=== PATIENT | male | born 1955 | race Caucasian/White ===

== ENCOUNTER 2020-07-19 08:20 | Outpatient (REF) | payer MEDICARE, OTHER, SELFPAY ==
[2020-07-19 11:23] LABS: MANUAL DIFF FLAG NO
[2020-07-19 11:34] LABS: Basophils Percent Auto 0.4 % (0-2); Eosinophils Absolute Auto 0.5 X10*3/uL (0.0-0.4); Eosinophils Percent Auto 6.6 % (0-4); Hematocrit 45.5 % (42-52); Hemoglobin 14.8 g/dl (14.0-18.0); Imm Gran Abs Auto 0.05 X10*3/uL (0.00-0.03); Imm Gran Pct Auto 0.7 % (0.0-0.4); Lymphocytes Absolute Auto 1.3 X10*3/uL (1.2-4.9); Lymphocytes Percent Auto 19.3 % (20-40); Mean Corpuscular HGB Conc 32.5 g/dl (31.0-36.0); Mean Corpuscular Hemoglobin 29.9 pg (27.0-33.0); Mean Corpuscular Volume 91.9 fL (80-98); Mean Platelet Volume 9.3 fL (9.4-12.4); Monocytes Absolute Auto 0.6 X10*3/uL (0.1-1.2); Monocytes Percent Auto 9.4 % (2-11); Neutrophils Absolute Auto 4.3 X10*3/uL (2.0-8.3); Neutrophils Percent Auto 63.6 % (45-73); Platelet Count 352 X10*3/uL (160-400); Red Blood Count 4.95 X10*6/uL (4.60-5.80); Red Cell Distribution Width 12.6 % (11.0-16.0); White Blood Count 6.8 X10*3/uL (4.8-10.8)
[2020-07-19 12:10] LABS: Alanine Aminotransferase 20 U/L (0-40); Albumin Level 4.4 g/dL (3.5-5.0); Alkaline Phosphatase 88 U/L (39-117); Anion Gap 12 (12-20); Aspartate Amino Transferase 15 U/L (5-37); Bilirubin Total 0.4 mg/dL (0.0-1.0); Blood Urea Nitrogen 11 mg/dL (9-16); Calcium 9.9 mg/dL (8.4-10.2); Carbon Dioxide 27 mmol/L (22-29); Chloride 104 mmol/L (96-108); Cholesterol 203 mg/dL; Estimated Glomerular Filt Rate > 60; Glucose Random 107 mg/dL (60-115); HDL Cholesterol 44 mg/dL; LDL Cholesterol Calculated 106 mg/dl; Potassium 4.9 mmol/L (3.3-5.1); Sodium 138 mmol/L (135-145); Total Protein 7.1 g/dL (6.5-8.0); Triglycerides 269 mg/dL
[2020-07-19 12:11] LABS: Free T4 (Free Thyroxine) 0.97 ng/dL (0.71-1.85); Prostate Specific Antigen Scr 2.18 ng/mL (<0.05-4.0); Thyroid Stimulating Hormone 2.97 uIU/mL (0.32-4.0)
[2020-07-20 20:24] LABS: Folate > 20.0 ng/mL (> or = 4.0); Vitamin B12 341 pg/mL (200-900)
== END 2020-07-19 08:21 | disposition home or self-care (01) ==
LOC: HO.HMGCLDS 08:20
PROVIDERS: PCP Internal Medicine; Visit Provider Internal Medicine
DX: I10 Essential (primary) hypertension (principal); E78.00 Pure hypercholesterolemia, unspecified; N40.1 Benign prostatic hyperplasia with lower urinary tract symptoms; R35.0 Frequency of micturition; Z12.5 Encounter for screening for malignant neoplasm of prostate
CPT/HCPCS: 36415; 80053; 80061; 82607; 82746; 84153; 84439; 84443; 85025

== ENCOUNTER 2020-11-09 08:40 | Outpatient (REF) | payer MEDICARE, OTHER, SELFPAY ==
--- NOTE | ~2020-11-09 | XR_ITS ---
EXAMINATION: XR RIBS, LEFT CLINICAL INFORMATION: R07.81 - Pleurodynia COMPARISON: Report from chest radiograph exam 08/29/2005 (images purged). TECHNIQUE: Frontal view of the chest and 3 views of the left ribs are obtained for a total of 4 views. FINDINGS: The lungs are clear. There is no pneumothorax, pleural reaction, airspace consolidation, or effusion. The costophrenic sulci are well-defined. The heart is normal in size. The hilar and mediastinal contours are unremarkable. There is no visible rib fracture or rib destructive process. Some mild degenerative changes are present thoracic spine with bridging osteophytes. There is fine calcific tendinosis adjacent to greater tuberosity left shoulder and in region of coracoclavicular ligament just above the coracoid process. XR/XR ribs LT min 3V w CXR1V IMPRESSION: 1. No visible rib fracture or rib destructive process. 2. Lungs clear. No pneumothorax or pleural reaction. 3. Degenerative changes thoracic spine. Mild calcific tendinosis left shoulder.
== END 2020-11-09 08:41 | disposition home or self-care (01) ==
LOC: HO.HMGCX 08:40
PROVIDERS: PCP Internal Medicine; Visit Provider Physician Assistant
DX: R07.81 Pleurodynia (principal)
CPT/HCPCS: 71101

== ENCOUNTER 2020-11-21 10:30 | Outpatient (REF) | payer MEDICARE, OTHER, SELFPAY ==
--- NOTE | ~2020-11-21 | US_ITS ---
EXAMINATION: US ABDOMEN COMPLETE CLINICAL INFORMATION: Left upper quadrant pain. COMPARISON: None TECHNIQUE: Real-time imaging of the abdominal viscera. FINDINGS: PANCREAS: Normal. ABDOMINAL AORTA: The proximal, mid, and distal segments are normal in caliber. INFERIOR VENA CAVA: Visualized portions are normal. LIVER: The liver is normal in size. The liver contour is normal. There is increased liver echogenicity. No focal hepatic lesion. There is no intrahepatic biliary duct dilatation seen. GALLBLADDER: Normal. The gallbladder is physiologically distended without evidence of stones, sludge, polyps, wall thickening or pericholecystic fluid. COMMON BILE DUCT: Normal in caliber measuring 0.29 cm in diameter. RIGHT KIDNEY: Normal. No hydronephrosis. No renal calculi or focal parenchymal lesions. The kidney measures 12.7 cm in maximum dimension. LEFT KIDNEY: Normal. No hydronephrosis. No renal calculi or focal parenchymal lesions. The kidney measures 12.5 cm in maximum dimension. SPLEEN: Normal. The spleen measures 9.60 cm in maximum dimension. FREE FLUID: None. US/US abdomen complete IMPRESSION: Hepatic steatosis without focal lesion. The rest of the abdominal ultrasound is unremarkable.
== END 2020-11-21 10:31 | disposition home or self-care (01) ==
LOC: HO.HMGCX 10:30
PROVIDERS: PCP Internal Medicine; Visit Provider Physician Assistant
DX: R10.12 Left upper quadrant pain (principal)
CPT/HCPCS: 76700

== ENCOUNTER → 2020-11-30 11:31 | Outpatient (BNVA) | payer MEDICARE, OTHER, SELFPAY | PROVIDERS: PCP Internal Medicine; Visit Provider Urology | DX: Z13.89 Encounter for screening for other disorder (principal) | CPT/HCPCS: 99212 ==

== ENCOUNTER 2021-01-23 07:26 | Outpatient (REF) | payer MEDICARE, OTHER, SELFPAY ==
[2021-01-23 11:25] LABS: MANUAL DIFF FLAG NO
[2021-01-23 11:41] LABS: Basophils Percent Auto 0.5 % (0-2); Eosinophils Absolute Auto 0.6 X10*3/uL (0.0-0.4); Eosinophils Percent Auto 8.6 % (0-4); Hematocrit 45.2 % (42-52); Hemoglobin 14.5 g/dl (14.0-18.0); Imm Gran Abs Auto 0.02 X10*3/uL (0.00-0.03); Imm Gran Pct Auto 0.3 % (0.0-0.4); Lymphocytes Absolute Auto 1.5 X10*3/uL (1.2-4.9); Lymphocytes Percent Auto 22.3 % (20-40); Mean Corpuscular HGB Conc 32.1 g/dl (31.0-36.0); Mean Corpuscular Hemoglobin 29.5 pg (27.0-33.0); Mean Corpuscular Volume 91.9 fL (80-98); Mean Platelet Volume 9.5 fL (9.4-12.4); Monocytes Absolute Auto 0.7 X10*3/uL (0.1-1.2); Monocytes Percent Auto 9.8 % (2-11); Neutrophils Absolute Auto 3.9 X10*3/uL (2.0-8.3); Neutrophils Percent Auto 58.5 % (45-73); Platelet Count 340 X10*3/uL (160-400); Red Blood Count 4.92 X10*6/uL (4.60-5.80); White Blood Count 6.7 X10*3/uL (4.8-10.8)
[2021-01-23 12:24] LABS: Alanine Aminotransferase 17 U/L (0-40); Albumin Level 4.3 g/dL (3.5-5.0); Alkaline Phosphatase 87 U/L (39-117); Anion Gap 12 (12-20); Aspartate Amino Transferase 14 U/L (5-37); Bilirubin Total 0.7 mg/dL (0.0-1.0); Blood Urea Nitrogen 10 mg/dL (9-16); Calcium 9.6 mg/dL (8.4-10.2); Carbon Dioxide 28 mmol/L (22-29); Chloride 104 mmol/L (96-108); Cholesterol 190 mg/dL; Estimated Glomerular Filt Rate > 60; Glucose Random 92 mg/dL (60-115); HDL Cholesterol 42 mg/dL; LDL Cholesterol Calculated 104 mg/dl; Potassium 5.1 mmol/L (3.3-5.1); Sodium 139 mmol/L (135-145); Total Protein 6.9 g/dL (6.5-8.0); Triglycerides 224 mg/dL
[2021-01-23 14:26] LABS: Estimated Average Glucose 105 mg/dL; Hemoglobin A1c % 5.3 %
== END 2021-01-23 07:27 | disposition home or self-care (01) ==
LOC: HO.HMGCLDS 07:26
PROVIDERS: PCP Internal Medicine; Visit Provider Internal Medicine
DX: E78.00 Pure hypercholesterolemia, unspecified (principal); R73.01 Impaired fasting glucose
CPT/HCPCS: 36415; 80053; 80061; 83036; 85025

== ENCOUNTER 2021-11-23 09:07 | Outpatient (REF) | payer MEDICARE, OTHER, SELFPAY ==
[2021-11-23 12:03] LABS: Prostate Specific Antigen 1.68 ng/mL (<0.05-4.0)
== END 2021-11-23 09:08 | disposition home or self-care (01) ==
LOC: HO.HMGCLDS 09:07
PROVIDERS: Visit Provider Urology
DX: Z12.5 Encounter for screening for malignant neoplasm of prostate (principal); N40.1 Benign prostatic hyperplasia with lower urinary tract symptoms; N13.8 Other obstructive and reflux uropathy
CPT/HCPCS: 36415; 84153

== ENCOUNTER → 2021-11-30 11:18 | Outpatient (BNVA) | payer MEDICARE, OTHER, SELFPAY | PROVIDERS: PCP Internal Medicine; Visit Provider Urology | DX: N40.1 Benign prostatic hyperplasia with lower urinary tract symptoms (principal); R35.0 Frequency of micturition; R97.20 Elevated prostate specific antigen [PSA] | CPT/HCPCS: 51798; 99212 ==

== ENCOUNTER 2022-05-28 10:10 | Outpatient (REF) | payer MEDICARE, OTHER, SELFPAY ==
[2022-05-28 12:51] LABS: PSA,Total (Free>4and<10) 3.82 ng/mL (0.00-4.00)
== END 2022-05-28 10:11 | disposition home or self-care (01) ==
LOC: HO.HMGCLDS 10:10
PROVIDERS: PCP Internal Medicine; Visit Provider Urology
DX: Z12.5 Encounter for screening for malignant neoplasm of prostate (principal); N13.8 Other obstructive and reflux uropathy; N40.1 Benign prostatic hyperplasia with lower urinary tract symptoms; R35.0 Frequency of micturition
CPT/HCPCS: 36415; 84153

== ENCOUNTER → 2022-06-04 08:52 | Outpatient (BNVA) | payer OTHER, MEDICARE, SELFPAY | PROVIDERS: PCP Internal Medicine; Visit Provider Urology | DX: Z13.89 Encounter for screening for other disorder (principal) ==

== ENCOUNTER 2022-06-18 07:35 | Day surgery (SDC) | payer MEDICARE, OTHER, SELFPAY ==
--- NOTE | 2022-06-17 12:38 | HO.ANESPROP2 ---
Documented by User: Melissa Gonzales NP 06/17/22 12:38 HPI - Anesthesia Eval Consult details Narrative: 67yo M for Colonoscopy PMFSH Active Problems Active Problems: All Active Problems (Updated 06/04/22 @ 09:32 by Arnulfo Andrade MD) Elevated PSA (Acute) Sebaceous cyst (Acute) Tubular adenoma of colon (Acute) Overweight (BMI 25.0-29.9) (Acute) Annual physical exam (Acute) Nasal congestion (Acute) Impaired fasting blood sugar (Acute) Rib pain on left side (Acute) LUQ abdominal pain (Acute) Left flank pain (Acute) Screening for AAA (aortic abdominal aneurysm) (Acute) Adult general medical exam (Acute) Hypercholesterolemia (Acute) BPH (benign prostatic hyperplasia) (Acute) Hypertension (Acute) Past Medical History Medical History (Updated 06/04/22 @ 09:32 by Arnulfo Andrade MD) BPH (benign prostatic hyperplasia) Carpal tunnel syndrome Distal radius fracture, right Erectile dysfunction Hypercholesterolemia Hypertension Psoriasis Family History Family History Mother Dementia Mental health disorder Father No problems noted. Surgical History Surgical History (Updated 06/18/22 @ 07:43 by Tiffanie Borden) H/O colonoscopy H/O hand surgery History of prostate biopsy History of umbilical hernia repair Previous back surgery Social History Social History Housing: House Alcohol intake: current Alcohol intake frequency: a few times a week Alcohol type: beer and wine Patient Tobacco Use Status: Former Tobacco user Quit Date: 2016 Tobacco use type: Cigar Years Smoked: stopped 2016 Smoked in Last 30 Days: No e-Cigarette/Vaping Use: Never Used Second Hand Smoke Exposure: No Use of substances other than those prescribed or required for medical reasons: No Are you DNR?: No Advance Directives: No Advance Directives Information Provided: Yes Current occupational status: retired Cognitive needs: No Hearing needs: No Vision needs: No Meds Allergies Allergy/AdvReac Type Severity Reaction Status Date / Time amlodipine AdvReac Intermediate trachycardi Verified 06/18/22 07:43 c Exam Exam Date and Time: June 17, 2022 1238 Assessment and Plan Assessment Anesthesia Assessment: Chart Reviewed Documented by User: Jamia Allen MD 06/18/22 08:28 PMFSH Past Medical History Medical History (Updated 06/04/22 @ 09:32 by Arnulfo Andrade MD) BPH (benign prostatic hyperplasia) Carpal tunnel syndrome Distal radius fracture, right Erectile dysfunction Hypercholesterolemia Hypertension Psoriasis Family History Family History Mother Dementia Mental health disorder Father No problems noted. Family history of problems with anesthesia: No Surgical History Surgical History (Updated 06/18/22 @ 07:43 by Tiffanie Borden) H/O colonoscopy H/O hand surgery History of prostate biopsy History of umbilical hernia repair Previous back surgery History of Problems with Anesthesia: No Social History Social History Housing: House Alcohol intake: current Alcohol intake frequency: a few times a week Alcohol type: beer and wine Patient Tobacco Use Status: Former Tobacco user Quit Date: 2016 Tobacco use type: Cigar Years Smoked: stopped 2016 Smoked in Last 30 Days: No e-Cigarette/Vaping Use: Never Used Second Hand Smoke Exposure: No Use of substances other than those prescribed or required for medical reasons: No Are you DNR?: No Advance Directives: No Advance Directives Information Provided: Yes Current occupational status: retired Cognitive needs: No Hearing needs: No Vision needs: No Meds Allergies Allergy/AdvReac Type Severity Reaction Status Date / Time amlodipine AdvReac Intermediate trachycardi Verified 06/18/22 07:43 c Exam Airway Mallampati Class: II TM Dist: >3cm Neck ROM: Full Heart: rrr Lungs: cta Assessment and Plan Assessment Anesthesia Assessment: Anesthesia Plan Discussed Final Anesthetic Review Family History of Problems with Anesthesia: No History of Problems with Anesthesia: No NPO: Yes ASA Class: III Final Preanesthetic Review: No Changes in Pt Med Stat, Meds/Allgs Chart Reviewed, Consent Obtained/Reviewed and Anes Risks/Benef Reviewed Patient Risk: Low Procedure Risk: Low Anesthetic Plan Anesthetic Plan: MAC: and Agree w/ Assess. and Plan Disposition: Standard PACU
[2022-06-18 07:46] VITALS: BMI 28.3
[2022-06-18 07:52] VITALS: BP 159/94; PULSE 77; RESP 16; TEMP 36.8; O2SAT 98
[2022-06-18] MEDS: Lactated Ringers 1,000 ML 100 ML IVCONT (08:22)
--- NOTE | 2022-06-18 08:46 | MHC.SHP ---
Pre-Procedural Eval Section A Date of Service: 06/18/22 Section B Chief Complaint: screening,Personal history of colonic polyps Details of Present Illness: see H&P no changes Relevant Family History (Specify if Yes): No Relevant Social History: None Present Medications: see Short Stay Collaborative assessment Medical History: No relevant PMH History of Previous Operations: No relevant previous surgery Allergies: Allergies Allergy/AdvReac Type Severity Reaction Status Date / Time amlodipine AdvReac Intermediate trachycardi Verified 06/18/22 07:43 c Review of Systems Sugical H&P ROS: Negative: Constitution, Cardiovascular, Respiratory, Neurological, Psychiatric, Hem-Onc, Allergic/Immunologic, Gastrointestinal, Genitourinary, Musculoskeletal, Integumentary, Endocrine and Eyes/Ears/Nose/Throat Exam Surgical H&P Exam: Normal: HEENT, Normal: Heart, Normal: Lungs, Normal: Extremities, Normal: Abdomen, Normal: Skin and Normal: Neurological Plan Diagnosis/Plan: Unchanged I have reviewed the history and physical and performed a pertinent physical examination on my patient. No changes have occurred unless specified. Time Spent With Patient Time: Total time managing care of this patient today ____ minutes.
--- NOTE | 2022-06-18 09:17 | PM.OP ---
Brief Operative Note Date of Service: 06/18/22 Pre-op diagnosis: screening Post-op diagnosis: same Procedure: colonoscopy Surgeon: Niko Gonsalez Anesthesia: MAC Was an Senior Treasury Analyst used for this Procedure?: No Estimated blood loss (mL): 2 Pathology: other Condition: stable Disposition: PACU
[2022-06-18 09:24] VITALS: BP 155/85; PULSE 95; RESP 17; TEMP 36.8; O2SAT 100
[2022-06-18 09:39] VITALS: BP 155/85; PULSE 76; RESP 16; TEMP 36.2; O2SAT 98
--- NOTE | 2022-06-18 11:14 | OP_ITS ---
SURGEON: Niko Gonsalez MD INDICATIONS: Colon cancer screening and prior history of adenomas colon polyps. PREOPERATIVE DIAGNOSIS: POSTOPERATIVE DIAGNOSIS: PROCEDURE PERFORMED: Colonoscopy to the terminal ileum with biopsy. ESTIMATED BLOOD LOSS: COMPLICATIONS: ANESTHESIA: Monitored anesthesia care. ASSISTANTS: SPECIMENS: DESCRIPTION OF PROCEDURE: The history and physical was performed. The risks and benefits of the procedure were explained to the patient. The procedure was performed on 06/18/2022. A digital rectal exam was performed. After informed consent was obtained, and was found to be normal. The Olympus pediatric video colonoscope was introduced into the rectum and advanced to the cecum without difficulty. The cecum was identified by transillumination, palpation, and identification of ileocecal valve. Examination was performed. The scope was removed. He tolerated the procedure well, and returned to recovery area in stable condition. FINDINGS: The terminal ileum was examined and appeared normal. The visualized colonic mucosa was normal. The quality of the prep was good. A single polyp measuring less than 5 mm was identified at 35 cm from anal verge. This was removed with biopsy forceps. No other polyps were identified. Retroflexed examination showed some hypertrophic anal papillae. IMPRESSION: Colon polyp. RECOMMENDATION: Follow up the biopsy results. MD JEAN CLAUDE Jewell/ANDRES / [id number]
== END 2022-06-18 10:03 | disposition home or self-care (01) ==
PROVIDERS: PCP Internal Medicine; Visit Provider Internal Medicine Gastroenterology
PROC: 0DJD8ZZ Inspection of Lower Intestinal Tract, Via Natural or Artificial Opening Endoscopic (ICD-10-PCS; CPT 45378; principal; 2022-06-18 08:50)
DX: Z12.11 Encounter for screening for malignant neoplasm of colon (principal); Z86.010 Personal history of colon polyps; K63.5 Polyp of colon; K62.89 Other specified diseases of anus and rectum; I10 Essential (primary) hypertension; E78.5 Hyperlipidemia, unspecified; R97.20 Elevated prostate specific antigen [PSA]; L40.9 Psoriasis, unspecified; Z79.899 Other long term (current) drug therapy; Z88.8 Allergy status to other drugs, medicaments and biological substances; Z87.891 Personal history of nicotine dependence
CPT/HCPCS: 45380; 88305

== ENCOUNTER 2023-01-06 09:48 | Outpatient (REF) | payer MEDICARE, OTHER, SELFPAY ==
[2023-01-06 13:06] LABS: PSA,Total (Free>4and<10) 2.25 ng/mL (0.00-4.00)
== END 2023-01-06 09:49 | disposition home or self-care (01) ==
LOC: HO.HMGCLDS 09:48
PROVIDERS: PCP Internal Medicine; Visit Provider Urology
DX: Z12.5 Encounter for screening for malignant neoplasm of prostate (principal); N40.1 Benign prostatic hyperplasia with lower urinary tract symptoms; R35.0 Frequency of micturition
CPT/HCPCS: 36415; 84153

== ENCOUNTER 2023-01-24 13:53 | Outpatient (AMB) | payer MEDICARE, OTHER, SELFPAY ==
--- NOTE | 2023-01-24 13:54 | MHC.OFFVIS ---
Intake Intake Visit Reasons: 6 month psa(set) Intake Note: Patient is present for Telephone Urology Med: Finasteride Antibiotic Allergy: None Blood Thinner: None [facility] Allergies amlodipine Adverse Reaction (Intermediate, Verified 01/24/23 13:54) trachycardic Medication List - Last Reconciled 01/24/23 by Arnulfo Andrade MD atorvastatin 40 mg PO DAILY finasteride 5 mg PO DAILY 90 days lisinopril 40 mg PO DAILY HPI HPI Comments History of Present Illness Details Mich MAHER is a very pleasant male. He is a patient of Dr Light. He is seen for the following urologic conditions. - elevated PSA - lower urinary tract symptoms Telemedicine Evaluation 15 min Consultation Doximity Jose Video attempted Finasteride resulted in fall of PSA appropriately Taking medication Friday, Friday, Friday Improvement in urination Six month follow-up to ensure stability Elevated PSA/Abnormal THEO: Nocturia 1-2x - much better Happy with stream PSA stable. He presents for further evaluation of elevated PSA. Current management is medication with 5AR. Laboratory investigations include a total PSA evaluation February 2011 3.26 Sep 2016 5.26 October 2016 5.4, 06/12 6.4 11%, 11/10 3.24, 12/11 3.7, 12/12 1.5, 07/16 2.2, 12/14 1.7, 06/17 3.8, 01/15 2.3 Imaging investigations include a transrectal ultrasound Yes Date 05/2017 PIN 06/06 Prostate Volume 60 Individualized Prostate Cancer Risk Calculator 5-10% high risk, Discussed use of 5AR to help differentiate prostate cancer from benign disease. He would like to try this and understands the small risk associated with a delay in diagnosis. Symptoms include 06/12 incomplete emptying, weak stream, nocturia, x 1, and are stable. Overall symptoms are mild. Therapeutic plan will be continued surveillance, 5AR. [facility] Medical History BPH (benign prostatic hyperplasia) Carpal tunnel syndrome Distal radius fracture, right Erectile dysfunction Hypercholesterolemia Hypertension Psoriasis Surgical History H/O colonoscopy H/O hand surgery History of prostate biopsy History of umbilical hernia repair Previous back surgery Family History Mother Dementia Mental health disorder Father No problems noted. Social History Housing: House Alcohol intake: current Alcohol intake frequency: a few times a week Alcohol type: beer and wine Patient Tobacco Use Status: Former Tobacco user Quit Date: 2016 Tobacco use type: Cigar Years Smoked: stopped 2015 e-Cigarette/Vaping Use: Never Used Second Hand Smoke Exposure: No Current occupational status: retired Cognitive needs: No Hearing needs: No Vision needs: No Review of Systems Const All systems reviewed & are unremarkable except as noted in HPI and below Reports no additional complaints Resp Reports no additional complaints GI Reports no additional complaints Reports as per HPI Musc Reports no additional complaints Physical Exam Telemedicine evaluation Appropriate responses Regular breathing rate and rhythm HEENT Head: Yes normal to inspection Ears: hearing grossly normal bilaterally Eyes General: appearance normal, both eyes and all related structures Neck Neck: Yes normal visual inspection Chest Chest palpation & inspection: normal inspection of the chest Resp Effort & Inspection: normal respiratory effort and able to speak in complete sentences Assessment & Plan Assessment & Plan (1) Elevated PSA: Code(s): R97.20 - Elevated prostate specific antigen [PSA] (2) BPH (benign prostatic hyperplasia): Code(s): N40.0 - Benign prostatic hyperplasia without lower urinary tract symptoms Qualifiers: Lower urinary tract symptom presence: symptoms present Lower urinary tract symptom detail: urinary frequency Qualified Code(s): N40.1 - Benign prostatic hyperplasia with lower urinary tract symptoms; R35.0 - Frequency of micturition Plan Six month follow-up PSA Orders: Orders Prostate Specific Antigen 6 Months R97.20 - Elevated prostate specific antigen [PSA] Patient Instructions: Imaging studies, laboratory and physical exam results were discussed and reviewed in detail. No major barriers to patient understanding were identified. An opportunity to ask questions regarding the treatment plan was provided. All questions were answered. The patient expressed understanding and agreement with the above treatment plan. The patient is aware they should contact our office by phone for worsening of their current condition or the appearance of new urologic symptoms. Compliance is encouraged with any medications and followup testing that is ordered. It is a privilege to participate in the urologic care of your patient. If you have any questions or concerns regarding treatment for the above conditions, or other urologic issues, please do not hesitate to contact me. The office telephone contact is [phone]. This note is constructed using voice recognition software. While every effort has been made to ensure accuracy balance bridge assembler errors may have been included. Yours sincerely, Dr Arnulfo Andrade MD, [facility] - Urology Providers of Expert, Compassionate Care for the Genitourinary System Telehealth Telehealth Location of provider rendering services: practice address Location of patient: address on file Patient Identification confirmed using: Name, : Yes Telehealth method: voice only Patient verbally consented to treatment: Yes Patient verbally consented to billing insurance company: Yes Patient informed of any privacy concerns related to visit: Yes Coding Level of Care Code Est Pt Level 3 (19867) Diagnoses Elevated PSA R97.20 BPH (benign prostatic hyperplasia) N40.1; R35.0 Lower urinary tract symptom presence: symptoms present Lower urinary tract symptom detail: urinary frequency
== END 2023-01-24 14:20 | disposition home or self-care (01) ==
LOC: HO.HUSH 13:53
PROVIDERS: PCP Internal Medicine; Visit Provider Urology
DX: R97.20 Elevated prostate specific antigen [PSA] (principal); N40.1 Benign prostatic hyperplasia with lower urinary tract symptoms; R35.0 Frequency of micturition
CPT/HCPCS: 99213

== ENCOUNTER → 2023-01-24 13:53 | Outpatient (BNVA) | payer MEDICARE, OTHER, SELFPAY | PROVIDERS: PCP Internal Medicine; Visit Provider Urology | DX: N40.1 Benign prostatic hyperplasia with lower urinary tract symptoms (principal); R35.0 Frequency of micturition; R97.20 Elevated prostate specific antigen [PSA] | CPT/HCPCS: 99212 ==

== ENCOUNTER 2023-03-04 07:28 | Outpatient (REF) | payer MEDICARE, OTHER, SELFPAY ==
[2023-03-04 12:42] LABS: Alanine Aminotransferase 20 U/L (0-40); Albumin Level 4.3 g/dL (3.5-5.0); Alkaline Phosphatase 86 U/L (39-117); Anion Gap 15 (12-20); Aspartate Amino Transferase 18 U/L (5-37); Bilirubin Total 0.4 mg/dL (0.0-1.0); Blood Urea Nitrogen 12 mg/dL (9-16); Calcium 9.8 mg/dL (8.4-10.2); Carbon Dioxide 24 mmol/L (22-29); Chloride 107 mmol/L (96-108); Cholesterol 199 mg/dL (<200); Estimated Glomerular Filt Rate > 60; Glucose Random 106 mg/dL (60-115); HDL Cholesterol 40 mg/dL (>40); LDL Cholesterol Calculated 119 mg/dL (<100); Potassium 4.5 mmol/L (3.3-5.1); Sodium 141 mmol/L (135-145); Total Protein 7.2 g/dL (6.5-8.0); Triglycerides 204 mg/dL (<150)
[2023-03-04 12:59] LABS: Free T4 (Free Thyroxine) 0.91 ng/dL (0.71-1.85)
== END 2023-03-04 07:29 | disposition home or self-care (01) ==
LOC: HO.HMGCLDS 07:28
PROVIDERS: PCP Internal Medicine; Visit Provider Internal Medicine
DX: E78.00 Pure hypercholesterolemia, unspecified (principal); I10 Essential (primary) hypertension; R73.01 Impaired fasting glucose
CPT/HCPCS: 36415; 80053; 80061; 82607; 82746; 83036; 84439; 84443; 85025

== ENCOUNTER 2023-03-10 11:09 | Outpatient (AMB) | payer MEDICARE, OTHER, SELFPAY ==
[2023-03-10 11:29] VITALS: BP 148/86; PULSE 89; O2SAT 100; BMI 29.1
--- NOTE | 2023-03-10 11:29 | MHC.PC.OV ---
Vital Signs 03/10/23 11:29 Height 5 ft 9 in Weight 197 lb 0.6 oz BMI 29.1 BP 148/86 H Blood Pressure Location Lt brachial Position Sitting Pulse 89 Pulse Source Pulse Oximeter Temp Source Skin Pulse Oximetry (%) 100 Oxygen Delivery Method Room Air Intake Visit Reasons: Annual physical reschedule Cuff Cutter Required: No Allergies amlodipine Adverse Reaction (Intermediate, Verified 03/10/23 11:30) trachycardic Medication List - Last Reconciled 03/10/23 by Adán Light MD atorvastatin 40 mg PO DAILY finasteride 5 mg PO DAILY 90 days lisinopril 40 mg PO DAILY multivitamin 1 tab PO DAILY Tobacco use date assessed: 03/10/23 Fall risk assessment: No Falls in past year Last assessed Fall Risk: 03/10/23 Dental Screening Dental Screen Date: 03/10/23 Did you have a dental visit in the last 12 months?: No Did you have a dental problem in the last 6 months where you did not have access to dental care?: No Was dental information given to patient?: Patient has dentist HPI Annual physical reschedule HPI Details 68-year-old overweight male with a history of impaired glucose tolerance hypercholesterolemia BPH hypertension last seen in February 2022. Patient is here for physical exam. Colonoscopy last done in May 2022. Review of the notes follows up with urology for the elevated PSA and lower urinary tract symptoms finasteride taken Friday under surveillance of PSA. BP at home is good [facility] Medical History (Updated 03/10/23 @ 12:05 by Adán Light MD) Carpal tunnel syndrome Distal radius fracture, right Psoriasis Erectile dysfunction Hypercholesterolemia BPH (benign prostatic hyperplasia) Hypertension Surgical History H/O colonoscopy Previous back surgery History of umbilical hernia repair H/O hand surgery History of prostate biopsy Family History Mother Dementia Mental health disorder Father No problems noted. Social History (Updated 03/10/23 @ 12:03 by Adán Light MD) Housing: House Alcohol intake: current Alcohol intake frequency: a few times a week Alcohol type: beer and wine Patient Tobacco Use Status: Former Tobacco user Quit Date: 2016 Tobacco use type: Cigar Years Smoked: stopped 2015 e-Cigarette/Vaping Use: Never Used Second Hand Smoke Exposure: No Current occupational status: retired Cognitive needs: No Hearing needs: No Vision needs: No Questionnaire PHQ-9 Over the last 2 weeks, how often have you been bothered by any of the following problems? 1. Little interest or pleasure in doing things: not at all 2. Feeling down, depressed, or hopeless: not at all 3. Trouble falling or staying asleep, or sleeping too much: not at all 4. Feeling tired or having little energy: not at all 5. Poor appetite or overeating: not at all 6. Feeling bad about yourself - or that you are a failure or have let yourself or your family down: not at all 7. Trouble concentrating on things, such as reading the newspaper or watching television: not at all 8. Moving or speaking so slowly that other people could have noticed. Or the opposite - being so fidgety or restless that you have been moving around a lot more than usual: not at all 9. Thoughts that you would be better off or of hurting yourself in some way: not at all Total score: 0 Depression Screening Interpretation: Negative Depression Screening Done: Yes Source: Developed by Drs. Evelio Vivas, Anuradha Webb, Kirk Euceda and colleagues, with an educational austen from [employer]. Thrive Questionnaire Date Thrive assessed: 03/08/22 AUDIT C Alcohol Use Questionnaire (AUDIT-C) 1. How often do you have a drink containing alcohol?: 2-3 times a week 2. How many drinks containing alcohol do you have on a typical day when you are drinking?: 1 or 2 3. How often do you have six or more drinks on one occasion?: Less than monthly Total Score: 4 SULMA-7 AMB Questionnaire SULMA-7 Date SULMA - 7 assessed: 03/10/23 Feeling nervous, anxious, or on edge: 0 = Not at all Not being able to stop or control worryin = Not at all Worrying too much about different things: 0 = Not at all Trouble relaxin = Not at all Being so restless that it is hard to sit still: 0 = Not at all Becoming easily annoyed or irritable: 0 = Not at all Feeling afraid as if something awful might happen: 0 = Not at all Total SULMA-7 score (0-4 normal; 5-9 mild; 10-14 moderate; 15-21 severe): 0 Source: Developed by Drs. Evelio Vivas, Anuradha Webb, Kirk Euceda and colleagues, with an educational austen from [employer]. Review of Systems Const Denies poor appetite and Denies weakness Eyes Denies no additional complaints ENT Reports Normal hearing present, Denies dizziness, Denies nasal congestion, Denies tinnitus and Denies sore throat Card Denies chest pain, Denies syncope, Denies rapid heart rate and Denies dyspnea Resp Denies cough and Denies dyspnea GI Denies change in stool character, Reports constipation, Denies diarrhea, Denies nausea and Denies vomiting Denies dysuria and Denies urinary frequency Neuro Reports Normal hearing present, Denies confusion, Denies dizziness, Denies syncope and Denies weakness Psych Denies confusion Physical exam (Primary Care) Vital Signs: Last Vital Signs Pulse 89 03/10/23 11:29 BP 148/86 H 03/10/23 11:29 Pulse Ox 100 03/10/23 11:29 Oxygen Delivery Method Room Air 03/10/23 11:29 BMI result Body Mass Index 29.1 Tobacco/Smoking Status: Tobacco use Status Tobacco use date assessed 03/10/23 03/10/23 11:30 Patient Tobacco Use Status Former Tobacco user 03/10/23 11:30 Tobacco use type Cigar 03/10/23 11:30 e-Cigarette/Vaping Use Never Used 03/10/23 11:30 PHQ-9: PHQ-9 Score PHQ-9: Total score 0 03/10/23 11:30 Depression Screening Interpretation: Negative Thrive Assessment: Date of Thrive Assessment Date Thrive assessed 03/08/22 03/10/23 11:30 Const General: No confusion Orientation/consciousness: No confusion HENMT Head: Yes normocephalic Ears: external ears normal and TM's normal bilaterally Face and sinus: Yes normal facial exam Mouth: moist mucous membranes Throat: Yes tonsils normal Eyes Conjunctivae: conjunctivae normal Pupils: Equal, round and reactive pupils present and Pupil accommodation reflex normal Direct Ophthalmoscopy: normal light reflex Neck Neck: No lymphadenopathy Thyroid: Thyroid normal Chest Chest palpation & inspection: normal inspection of the chest Resp Effort & Inspection: normal respiratory effort and no audible wheezes Auscultation: clear to auscultation bilaterally, no crackles, no wheezes and lung sounds not diminished Cardio Rate: regular rate Rhythm: regular rhythm Peripheral pulses: radial pulses present and dorsalis pedis present GI Other: colon test 2022 Palpation (GI): no masses Auscultation: normal bowel sounds and normoactive bowel sounds Rectal Exam - Male: Yes deferred Male General Exam: Yes normal external exam Skin Other: erytheamtous scalp rash no scalpiness General skin exam: no rashes or lesions noted Rashes: no rashes Neuro General: No confusion Cranial nerves: Yes Equal, round and reactive pupils present and Yes Normal hearing present Cognition (Neuro): normal cognition Gait exam (Neuro): Normal gait present Motor exam (neuro): 5/5 motor strength present throughout Deep tendon reflexes (DTR's): Right brachioradialis reflex intensity grade: 2+, Left brachioradialis reflex intensity grade: 2+, Right patellar reflex intensity grade: 2+ and Left patellar reflex intensity grade: 2+ Extrem General: No edema Office Procedures Flu Questionnaire Does the patient have a severe egg allergy?: No Does the patient have severe life threatening allergies?: No Does the patient have a fever or illness today?: No Has the patient ever had Guillain-[place] Syndrome?: No Has the patient ever had any past reaction to a flu shot?: No Immunizations flu vacc [id number] 6mos up(PF) 60 mcg(15 mcgx4)/0.5 mL IM syringe Performing Provider: Adán Light MD [facility] Administered by: ALLAN Palacio on 03/10/23 11:40 Dose Route Admin Location Dispensed Lot Number Expiration Date NDC Retail Stock Clerk 0.5 mL IM Left Deltoid 0.5 mL [id number] 11/23/23 [id number] [employer] VIS Given Date VIS Provided VIS Publication Date 03/10/23 Single Vaccine 20 Eligibility Eligibility Date Funding Source Not [facility] Eligible 03/10/23 Private Assessment and Plan Assessment & Plan (1) Annual physical exam: Code(s): Z00.00 - Encounter for general adult medical examination without abnormal findings (2) Overweight (BMI 25.0-29.9): Code(s): E66.3 - Overweight Plan: Diet and exercise (3) Hypertension: Code(s): I10 - Essential (primary) hypertension Qualifiers: Hypertension type: essential hypertension Qualified Code(s): I10 - Essential (primary) hypertension Plan: Continue with blood pressure medication. Decrease salt intake and exercise patient is on lisinopril 40 mg once a day (4) BPH (benign prostatic hyperplasia): Code(s): N40.0 - Benign prostatic hyperplasia without lower urinary tract symptoms Qualifiers: Lower urinary tract symptom presence: symptoms present Lower urinary tract symptom detail: urinary frequency Qualified Code(s): N40.1 - Benign prostatic hyperplasia with lower urinary tract symptoms; R35.0 - Frequency of micturition Plan: Patient follows up with urology and on finasteride 5 mg Friday (5) Hypercholesterolemia: Code(s): E78.00 - Pure hypercholesterolemia, unspecified Plan: Avoid fried foods, chicken skin, eggs, butter margarine, pastries and meat. Be it pork or beef they have a lot of cholesterol LDL goal of less than 130 on atorvastatin 40 mg once a day February 2023 last blood work (6) Elevated PSA: Code(s): R97.20 - Elevated prostate specific antigen [PSA] Plan: Continue on surveillance with urology (7) Impaired fasting blood sugar: Code(s): R73.01 - Impaired fasting glucose Plan: Decrease the amount of carbohydrate intake, pasta, bread, rice and potatoes are all sugar and that is aside from all the sweet stuff, remember that fruits are good but they are Sweet also. (8) Psoriasis: Code(s): L40.9 - Psoriasis, unspecified Plan: dermatology referral done (9) Nasal congestion: Code(s): R09.81 - Nasal congestion Orders: Orders Influenza [id number] Immunization Today Z23 - Encounter for immunization Referrals Dermatology Referral L40.9 - Psoriasis, unspecified Ear/Nose/Throat Referral R09.81 - Nasal congestion Medications: New fluticasone propionate 50 mcg/actuation (Flonase Allergy Relief) administer into each nostril 2 sprays intranasal DAILY 16 grams 0RF R09.81 - Nasal congestion Coding Level of Care Code Est Pt Prev Care >65y(58003) Diagnoses Annual physical exam Z00.00 Overweight (BMI 25.0-29.9) E66.3 Essential hypertension I10 Hypertension type: essential hypertension Benign prostatic hyperplasia with urinary frequency N40.1; R35.0 Lower urinary tract symptom presence: symptoms present Lower urinary tract symptom detail: urinary frequency Hypercholesterolemia E78.00 Elevated PSA R97.20 Impaired fasting blood sugar R73.01 Psoriasis L40.9 Nasal congestion R09.81
== END 2023-03-10 12:22 | disposition home or self-care (01) ==
PROVIDERS: PCP Internal Medicine; Visit Provider Internal Medicine
DX: Z23 Encounter for immunization (principal)
CPT/HCPCS: 90471; 90686; 99397

== ENCOUNTER 2023-07-09 07:27 | Emergency (ER) | payer MEDICARE, OTHER, SELFPAY ==
--- NOTE | ~2023-07-09 | XR_ITS ---
EXAMINATION: XR HIP, RIGHT CLINICAL INFORMATION: Atraumatic hip pain COMPARISON: None available. TECHNIQUE: Two views of the right hip. FINDINGS: Bony pelvis is intact. SI joints within normal limits. Mild right hip joint narrowing. Left hip joint is maintained. No fracture or dislocation. XR/XR hip RT min 2V IMPRESSION: Mild right hip joint narrowing.
[2023-07-09 07:31] VITALS: BP 171/110; PULSE 100; RESP 19; TEMP 36.6; O2SAT 98; BMI 28.8
[2023-07-09 08:59] VITALS: BP 170/83; PULSE 93; RESP 16; O2SAT 99
--- NOTE | 2023-07-09 09:06 | ED.GENADULT ---
HPI - General Adult General Chief complaint: Extremity Injury, Lower Stated complaint: R Leg Pain No Injury Time Seen by Provider: 07/09/23 09:04 Source: patient Mode of arrival: ambulatory Limitations: no limitations History of Present Illness HPI narrative: Patient is a 68 year old assigned male at with a history of HTN presenting to the emergency department today with right hip pain. Patient states that over the last month he has had right sided hip pain that doesn't seem to be improving. Patient denies any dizziness, lightheadedness, abdominal pain, nausea, vomiting, fever, chills, blurry vision, double vision, loss of vision, chest pain, difficulty breathing, shortness of breath, back pain, night sweats, pain with urination, increased urinary frequency, increased urinary urgency, blood in his urine or stool, syncope or a near syncopal episode, recent trauma or falls, bowel incontinence, bladder incontinence, bowel retention, bladder retention, or any other complaints at this time. Onset (ago): month(s) (1) Location: right (hip) Severity: mild Severity scale (1-10): 3 Quality: aching and dull Pain Consistency: constant Relieving factors: none Exacerbating factors: none Associated symptoms: denies other symptoms Treatments prior to arrival: none Related Data Home Medications Medication Instructions Recorded Confirmed multivitamin 1 tab PO DAILY 03/10/23 03/10/23 Previous Rx's Medication Instructions Recorded finasteride 5 mg tablet 5 mg PO DAILY 90 days #90 tabs 12/19/22 lisinopril 40 mg tablet 40 mg PO DAILY #90 tabs 02/05/23 fluticasone propionate 50 2 spray intranasal DAILY #16 grams 05/23/23 mcg/actuation nasal spray,suspension (Flonase Allergy Relief) atorvastatin 40 mg tablet 40 mg PO DAILY #90 tabs 06/29/23 cyclobenzaprine 5 mg tablet 5 mg PO TID PRN muscle spasm 7 07/09/23 days #21 tabs naproxen 500 mg tablet 500 mg PO BID 7 days #14 tabs 07/09/23 prednisone 20 mg tablet 20 mg PO DAILY 7 days #7 tabs 07/09/23 Allergies Allergy/AdvReac Type Severity Reaction Status Date / Time amlodipine AdvReac Intermediate trachycardi Verified 07/09/23 07:31 c Review of Systems Constitutional: Constitutional: Reports no additional constitutional complaints, Denies chills, Denies fever(s) and Denies night sweats Eyes: Eyes: Reports no additional eye complaints, Denies blurry vision, Denies change in vision, Denies diplopia, Denies eye discharge, Denies loss of vision and Denies eye pain ENT: Denies dizziness Cardiovascular: Cardiovascular: Reports no additional cardiovascular complaints, Denies chest pain, Denies lightheadedness, Denies Loss of Consciousness and Denies dyspnea Respiratory: Respiratory: Reports no additional respiratory complaints and Denies dyspnea Gastrointestinal: Gastrointestinal: Reports no additional gastrointestinal complaints, Denies abdominal pain, Denies melena, Denies hematochezia, Denies change in bowel habits and Denies change in stool character Genitourinary: Genitourinary: Reports no additional male genitourinary complaints, Denies hematuria, Denies oliguria, Denies difficulty urinating, Denies dysuria, Denies urinary frequency, Denies urinary hesitancy, Denies urinary incontinence and Denies urinary urgency Musculoskeletal: Musculoskeletal: Reports no additional musculoskeletal complaints, Denies numbness and Denies tingling Comments: right hip pain Neurologic: Denies dizziness, Denies loss of vision, Denies numbness and Denies tingling Psychiatric: Psychiatric: Reports no additional psychiatric complaints Endocrine: Endocrine: Reports no additional endocrine complaints Hematologic/Lymphatic: Hematologic/Lymphatic: Reports no additional hematologic/lymphatic complaints Allergic/Immunologic: Allergic/Immunologic: Reports no additional allergic/immunologic complaints COUNT INCLUDES THE [facility] Past Medical History Attestation statement: The following information was validated with the patient. Source: old records reviewed and nursing notes reviewed Medical History Carpal tunnel syndrome Distal radius fracture, right Psoriasis Erectile dysfunction Hypercholesterolemia BPH (benign prostatic hyperplasia) Hypertension Surgical History H/O colonoscopy Previous back surgery History of umbilical hernia repair H/O hand surgery History of prostate biopsy Family History Family History Mother Dementia Mental health disorder Father No problems noted. Social History Social History Housing: House Alcohol intake: current Alcohol intake frequency: a few times a week Alcohol type: beer and wine Patient Tobacco Use Status: Former Tobacco user Quit Date: 2016 Tobacco use type: Cigar Years Smoked: stopped 2015 e-Cigarette/Vaping Use: Never Used Second Hand Smoke Exposure: No Advance Directives: No Advance Directives Information Provided: No Current occupational status: retired Cognitive needs: No Hearing needs: No Vision needs: No Physical Exam ED Vital Signs: Vital Signs - 24 hr 07/09/23 07:31 07/09/23 08:59 Temperature 98 F Pulse Rate 100 93 Respiratory Rate 19 16 Blood Pressure 171/110 H 170/83 H Pulse Oximetry 98 99 Oxygen Delivery Method Room Air Room Air BMI result Body Mass Index 28.8 Const General: cooperative, no acute distress, alert and awake Nutritional Appearance: well nourished Orientation/consciousness: patient oriented x3 Limitations: no limitations HENMT Head: Yes normal to inspection and Yes atraumatic Ears: hearing grossly normal bilaterally and external ears normal General nose exam: Normal external nose present, no nasal discharge noted and no epistaxis Face and sinus: Yes normal facial exam, No abrasion and No laceration Mouth: Normal oral and palatal mucosa present, no drooling and no muffled voice Eyes General: appearance normal, both eyes and all related structures Periorbital: periorbital findings normal Eyelids: Yes eyelids normal Conjunctivae: conjunctivae normal Pupils: Equal, round and reactive pupils present EOM: EOMs intact bilaterally Neck Neck: Yes normal visual inspection, Yes full ROM and Yes no lymphadenopathy Chest Chest palpation & inspection: normal inspection of the chest Resp Effort & Inspection: normal respiratory effort and able to speak in complete sentences GI Inspection: Yes normal to inspection General: Yes no CVA tenderness Back/Spine/Pelvis Back: no CVA tenderness Cervical Spine: normal cervical lordosis and cervical ROM normal Thoracic/Lumbar Spine: thoracic and lumbar spine normal to inspection Pelvis: no pain with anterior-posterior compression Neuro General: patient oriented x3 and moves all extremities Cranial nerves: Yes Equal, round and reactive pupils present Cognition (Neuro): normal cognition Motor exam (neuro): 5/5 motor strength present throughout Sensory Exam: Normal double simultaneous stimulation for sensation Coordination: [id number] test normal Extrem General: Yes normal to inspection, Yes full ROM and Yes capillary refill normal Psych Appearance: grossly normal Mental Status: mental status grossly normal Affect: normal affect Attitude: cooperative Thought process: Normal thought process present Thought content: Normal thought content present Insight: Good insight present (Psych) Medical Decision Making Medical Decision Making MDM Narrative: Patient is a 68 year old assigned male at with a history of HTN presenting to the emergency department today with right hip pain. Patient's physical exam was unremarkable. Patient's right hip x-ray showed no acute process. I explained my physical exam findings as well as all test results to the patient. I answered all questions asked by the patient. I stressed the importance of the patient taking his medication as prescribed. I stressed the importance of the patient following up with his primary care provider and an orthopedic provider. I stressed the importance of the patient returning to the emergency department immediately if his symptoms were to worsen or if he were to develop any dizziness, shortness of breath, difficulty breathing, chest pain, blurry vision, loss of vision, nausea, vomiting, abdominal pain, fever, chills, back pain, or any other complaints. Patient verbalized agreement and understanding with this treatment plan and discharge. Differential Diagnosis Differential Diagnoses: The differential diagnosis associated with the presentation includes Osteoarthritis Bursitis Hip pain Admission/Observation Consideration of admission/observation: Escalation of care including admission/observation considered Patient would have been admitted to the hospital had his work up had any findings where hospital admission was appropriate and his clinical presentation warranted hospital admission. Independent Interpretation I performed an independent interpretation of an: Plain X-Ray Interpretation: My interpretation is in agreement with the radiologist's impression of this imaging study. EXAMINATION: XR HIP, RIGHT CLINICAL INFORMATION: Atraumatic hip pain COMPARISON: None available. TECHNIQUE: Two views of the right hip. FINDINGS: Bony pelvis is intact. SI joints within normal limits. Mild right hip joint narrowing. Left hip joint is maintained. No fracture or dislocation. XR/XR hip RT min 2V IMPRESSION: Mild right hip joint narrowing. Dictated By: Martha Ness MD Signed By: Electronically signed by Martha Ness MD 07/09/23 0839 Radiology Impression Discussion of test interpretation with radiology: I have reviewed the radiologist's reading. Prescription Management I considered prescription management with: Pain Medication (patient prescribed pain medication) Chronic Conditions Patient?s care impacted by: Hypertension Discharge Plan Discharge Clinical Impression: Acute hip pain Patient Disposition: Home, Self-Care Instructions: Hip Pain (ED) Additional Instructions: Follow up with your primary care provider and an orthopedic provider. Return to the emergency department immediately if your symptoms worsen or if you develop any dizziness, shortness of breath, difficulty breathing, chest pain, blurry vision, loss of vision, nausea, vomiting, abdominal pain, fever, chills, back pain, or any other complaints. Prescriptions: New cyclobenzaprine 5 mg tablet 5 mg PO TID PRN (Reason: muscle spasm) 7 Days Qty: 21 0RF prednisone 20 mg tablet 20 mg PO DAILY 7 Days Qty: 7 0RF naproxen 500 mg tablet 500 mg PO BID 7 Days Qty: 14 0RF No Action finasteride 5 mg tablet 5 mg PO DAILY 90 Days Qty: 90 1RF lisinopril 40 mg tablet 40 mg PO DAILY Qty: 90 3RF fluticasone propionate [Flonase Allergy Relief] 50 mcg/actuation spray,suspension 2 spray intranasal DAILY Qty: 16 3RF Rx Instructions: administer into each nostril atorvastatin 40 mg tablet 40 mg PO DAILY Qty: 90 2RF multivitamin Tablet 1 tab PO DAILY [place]: [facility] [place]Provider Group] (Call to establish and follow up with an orthopedic provider. ) Adán Light MD [Primary Care Provider] - Print Language: Trinidadian
[2023-07-09] MEDS: predniSONE 20 MG TABLET PO (09:52)
[2023-07-09] MEDS: Ketorolac Tromethamine 15 MG/ML VIAL IM (09:52)
[2023-07-09] MEDS: Cyclobenzaprine HCl 5 MG TABLET PO (09:52)
== END 2023-07-09 10:16 | disposition home or self-care (01) ==
PROVIDERS: Emergency Provider Emergency Medicine Emergency Medical Services; PCP Internal Medicine
DX: M25.551 Pain in right hip (principal); I10 Essential (primary) hypertension; E78.00 Pure hypercholesterolemia, unspecified
CPT/HCPCS: 73502; 96372; 99284; J1885

== ENCOUNTER 2023-07-23 07:50 | Outpatient (AMB) | payer MEDICARE, OTHER, SELFPAY ==
[2023-07-23 08:03] VITALS: BMI 28.8
--- NOTE | 2023-07-23 08:03 | A.OFFVIS_ITS ---
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 The patient states that his pain began several months ago and he felt like he had strained his low back. The patient states that his pain was along the posterior aspect of his right hip. The patient states that the pain radiates down his leg. He also reports difficulty getting out of bed. The patient states that on 07/09/2023 his leg collapsed immediately when he got out of bed and he had difficulty walking. He was seen at the emergency room at that time. Has taken muscle relaxants and prednisone which gave him minimal relief. The patient has difficulty climbing stairs. The patient denies any groin pain. Allergies amlodipine Adverse Reaction (Intermediate, Verified 07/23/23 08:08) trachycardic Medication List - Last Reconciled 07/23/23 by Stefan Royal MD atorvastatin 40 mg PO DAILY cyclobenzaprine 5 mg PO TID PRN 7 days finasteride 5 mg PO DAILY 90 days fluticasone propionate 50 mcg/actuation (Flonase Allergy Relief) 2 sprays intranasal DAILY lisinopril 40 mg PO DAILY multivitamin 1 tab PO DAILY naproxen 500 mg PO BID 7 days prednisone 20 mg PO DAILY 7 days [facility] Medical History Carpal tunnel syndrome Distal radius fracture, right Psoriasis Erectile dysfunction Hypercholesterolemia BPH (benign prostatic hyperplasia) Hypertension Surgical History H/O colonoscopy Previous back surgery History of umbilical hernia repair H/O hand surgery History of prostate biopsy Family History Mother Dementia Mental health disorder Father No problems noted. Social History Housing: House Alcohol intake: current Alcohol intake frequency: a few times a week Alcohol type: beer and wine Patient Tobacco Use Status: Former Tobacco user Quit Date: 2016 Tobacco use type: Cigar Years Smoked: stopped 2015 e-Cigarette/Vaping Use: Never Used Second Hand Smoke Exposure: No Current occupational status: retired Cognitive needs: No Hearing needs: No Vision needs: No Physical Exam Vital Signs: BMI result Body Mass Index 28.8 Const Other: Well-nourished well-developed very friendly male awake alert and oriented x3 in no acute distress Back/Spine/Pelvis Other: Low back examination shows right-sided paraspinal muscle tenderness, pain with range of motion, positive straight leg raise test on the right at 70 degrees Extrem Other: Right hip examination shows minimal tenderness over his bursa, minimal dis comfort with range of motion Right knee examination shows minimal discomfort with range of motion Results Reviewed Results Reviewed: X-rays of the patient's right hip and right knee show mild diffuse joint space narrowing, no acute bony abnormalities Assessment & Plan Assessment & Plan (1) Low back pain radiating to right leg: Code(s): M54.50 - Low back pain, unspecified; M79.604 - Pain in right leg Plan Mr. Newell presents with progressively worsening right leg pain and weakness possibly due to lumbar stenosis or a disc herniation. Thus, I will send the patient for an MRI of his lumbar spine for further evaluation. I did give him a prescription for Vicodin to help with his pain in the meantime. I will see him back once the MRI is completed to discuss the findings and treatment options. Will contact me prior to that time should his symptoms worsen in any way. Feel free to call me at any time should questions regarding his orthopedic management arise. I spent 22 minutes in reviewing the patient's records and imaging studies, seeing the patient and documenting in the medical record. Orders: Orders XR knee RT 3V Today M25.561 - Pain in right knee MR lumbar spine wo con Today M54.50 - Low back pain, unspecified, M79.604 - Pain in right leg Medications: New hydrocodone-acetaminophen 5-325 mg Partial Fill upon patient request. 1 tab PO Q12H PRN 30 tabs 0RF pain Coding Level of Care Code New Pt Level 2 (77839) Diagnoses Low back pain radiating to right leg M54.50; M79.604
== END 2023-07-23 08:26 | disposition home or self-care (01) ==
PROVIDERS: PCP Internal Medicine; Visit Provider Orthopaedic Surgery
DX: M54.50 Low back pain, unspecified (principal); M79.604 Pain in right leg
CPT/HCPCS: 99202

== ENCOUNTER 2023-07-23 10:35 | Outpatient (REF) | payer MEDICARE, OTHER, SELFPAY ==
--- NOTE | ~2023-07-23 | XR_ITS ---
EXAMINATION: XR KNEE, RIGHT CLINICAL INFORMATION: Pain. COMPARISON: None available. TECHNIQUE: Three views of the right knee. FINDINGS: No fracture or subluxation. Minimal joint space narrowing of the medial compartment. No osseous erosions or abnormal soft tissue calcifications. No joint effusion. Mild to moderate vascular calcifications. XR/XR knee RT 3V IMPRESSION: No acute fracture or malalignment. 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
== END 2023-07-23 10:36 | disposition home or self-care (01) ==
LOC: HO.HOSX 10:35
PROVIDERS: Visit Provider Orthopaedic Surgery
DX: M25.561 Pain in right knee (principal); M25.551 Pain in right hip; M79.604 Pain in right leg; M54.50 Low back pain, unspecified; Z12.5 Encounter for screening for malignant neoplasm of prostate; Z79.899 Other long term (current) drug therapy
CPT/HCPCS: 36415; 73562; 84153; 99202

== ENCOUNTER 2023-07-23 13:04 | Outpatient (REF) | payer MEDICARE, OTHER, SELFPAY ==
[2023-07-23 18:11] LABS: Prostate Specific Antigen 3.18 ng/mL (<0.05-4.0)
== END 2023-07-23 13:05 | disposition home or self-care (01) ==
LOC: HO.HMGCLDS 13:04
PROVIDERS: PCP Internal Medicine; Visit Provider Urology
DX: Z13.89 Encounter for screening for other disorder (principal)
CPT/HCPCS: 36415; 84153

== ENCOUNTER → 2023-07-29 09:47 | Outpatient (BNVA) | payer MEDICARE, OTHER, SELFPAY | PROVIDERS: PCP Internal Medicine; Visit Provider Urology ==

== ENCOUNTER 2023-07-29 09:54 | Outpatient (AMB) | payer MEDICARE, OTHER, SELFPAY ==
--- NOTE | 2023-07-29 09:55 | A.OFFVIS_ITS ---
Intake Intake Visit Reasons: Follow Up Intake Note: Patient is Present for Telephone Follow Up For Urology Med: Finasteride, Antibiotic Allergy: None Blood Thinner: None Confirmed Pharmacy: [id number] Allergies amlodipine Adverse Reaction (Intermediate, Verified 07/23/23 08:08) trachycardic Medication List - Last Reconciled 07/29/23 by Arnulfo Andrade MD atorvastatin 40 mg PO DAILY cyclobenzaprine 5 mg PO TID PRN 7 days finasteride 5 mg PO DAILY 90 days fluticasone propionate 50 mcg/actuation (Flonase Allergy Relief) 2 sprays intranasal DAILY hydrocodone-acetaminophen 5-325 mg 1 tab PO Q12H PRN lisinopril 40 mg PO DAILY multivitamin 1 tab PO DAILY naproxen 500 mg PO BID 7 days prednisone 20 mg PO DAILY 7 days HPI HPI Comments History of Present Illness Details Mich MAHER is a very pleasant male. He is a patient of Dr Light. He is seen for the following urologic conditions. - elevated PSA - lower urinary tract symptoms Telemedicine Evaluation 15 min Consultation [facility] Video Finasteride resulted in fall of PSA appropriately Taking medication Friday, Friday, Friday Improvement in urination PSA 3.2 Elevated PSA/Abnormal THEO: Nocturia 1-2x - much better Happy with stream PSA stable. He presents for further evaluation of elevated PSA. Current management is medication with 5AR. Laboratory investigations include a total PSA evaluation February 2011 3.26 Sep 2016 5.26 October 2016 5.4, 06/12 6.4 11%, 11/10 3.24, 12/11 3.7, 12/12 1.5, 07/16 2.2, 12/14 1.7, 06/17 3.8, 01/15 2.3, 07/19 Imaging investigations include a transrectal ultrasound Yes Date 05/2017 PIN 06/06 Prostate Volume 60 Individualized Prostate Cancer Risk Calculator 5-10% high risk, Discussed use of 5AR to help differentiate prostate cancer from benign disease. He would like to try this and understands the small risk associated with a delay in diagnosis. Symptoms include 06/12 incomplete emptying, weak stream, nocturia, x 1, and are stable. Overall symptoms are mild. Therapeutic plan will be continued surveillance, 5AR. [facility] Medical History Carpal tunnel syndrome Distal radius fracture, right Psoriasis Erectile dysfunction Hypercholesterolemia BPH (benign prostatic hyperplasia) Hypertension Surgical History H/O colonoscopy Previous back surgery History of umbilical hernia repair H/O hand surgery History of prostate biopsy Family History Mother Dementia Mental health disorder Father No problems noted. Social History Housing: House Alcohol intake: current Alcohol intake frequency: a few times a week Alcohol type: beer and wine Patient Tobacco Use Status: Former Tobacco user Quit Date: 2016 Tobacco use type: Cigar Years Smoked: stopped 2015 e-Cigarette/Vaping Use: Never Used Second Hand Smoke Exposure: No Current occupational status: retired Cognitive needs: No Hearing needs: No Vision needs: No Review of Systems Const All systems reviewed & are unremarkable except as noted in HPI and below Reports no additional complaints Resp Reports no additional complaints GI Reports no additional complaints Reports as per HPI Musc Reports no additional complaints Physical Exam Telemedicine evaluation Appropriate responses Regular breathing rate and rhythm HEENT Head: Yes normal to inspection Ears: hearing grossly normal bilaterally Eyes General: appearance normal, both eyes and all related structures Neck Neck: Yes normal visual inspection Chest Chest palpation & inspection: normal inspection of the chest Resp Effort & Inspection: normal respiratory effort and able to speak in complete sentences Assessment & Plan Assessment & Plan (1) BPH (benign prostatic hyperplasia): Code(s): N40.0 - Benign prostatic hyperplasia without lower urinary tract symptoms Qualifiers: Lower urinary tract symptom presence: symptoms present Lower urinary tract symptom detail: urinary frequency Qualified Code(s): N40.1 - Benign prostatic hyperplasia with lower urinary tract symptoms; R35.0 - Frequency of micturition (2) Elevated PSA: Code(s): R97.20 - Elevated prostate specific antigen [PSA] Plan 6m f/u PSA Orders: Orders Prostate Specific Antigen 6 Months R97.20 - Elevated prostate specific antigen [PSA] Patient Instructions: Imaging studies, laboratory and physical exam results were discussed and reviewed in detail. No major barriers to patient understanding were identified. An opportunity to ask questions regarding the treatment plan was provided. All questions were answered. The patient expressed understanding and agreement with the above treatment plan. The patient is aware they should contact our office by phone for worsening of their current condition or the appearance of new urologic symptoms. Compliance is encouraged with any medications and followup testing that is ordered. It is a privilege to participate in the urologic care of your patient. If you have any questions or concerns regarding treatment for the above conditions, or other urologic issues, please do not hesitate to contact me. The office telephone contact is [phone]. This note is constructed using voice recognition software. While every effort has been made to ensure accuracy director of direct marketing errors may have been included. Yours sincerely, Dr Arnulfo Andrade MD, [facility] - Urology Providers of Expert, Compassionate Care for the Genitourinary System Telehealth Telehealth Location of provider rendering services: practice address Location of patient: address on file Patient Identification confirmed using: Name, : Yes Telehealth method: video Patient verbally consented to treatment: Yes Patient verbally consented to billing insurance company: Yes Patient informed of any privacy concerns related to visit: Yes Coding Level of Care Code Tele Est Pt Level 3 (08120) Diagnoses Benign prostatic hyperplasia with urinary frequency N40.1; R35.0 Lower urinary tract symptom presence: symptoms present Lower urinary tract symptom detail: urinary frequency Elevated PSA R97.20
== END 2023-07-29 10:47 | disposition home or self-care (01) ==
LOC: HO.HUSH 09:55
PROVIDERS: PCP Internal Medicine; Visit Provider Urology
DX: N40.1 Benign prostatic hyperplasia with lower urinary tract symptoms (principal); R35.0 Frequency of micturition; R97.20 Elevated prostate specific antigen [PSA]
CPT/HCPCS: 99213

== ENCOUNTER 2023-08-05 08:22 | Outpatient (AMB) | payer MEDICARE, OTHER, SELFPAY ==
[2023-08-05 08:27] VITALS: BMI 28.8
--- NOTE | 2023-08-05 08:27 | MHC.OFFVIS ---
Intake Vital Signs 08/05/23 08:27 Height 5 ft 9 in Weight 195 lb BMI 28.8 Intake Visit Reasons: OV - lumbar spine MRI review Intake Note: Mich is a 68 year old male who presents for his MRI review of his lumbar spine. Patient reports he has had a few more falls since the last time he was seen. The patient states that his pain began several months ago and he felt like he had strained his low back. The patient states that his pain was along the posterior aspect of his right hip. The patient states that the pain radiates down his leg. He also reports difficulty getting out of bed. The patient states that on 07/09/2023 his leg collapsed immediately when he got out of bed and he had difficulty walking. He was seen at the emergency room at that time. Has taken muscle relaxants and prednisone which gave him minimal relief. The patient has difficulty climbing stairs. The patient denies any groin pain. Allergies amlodipine Adverse Reaction (Intermediate, Verified 08/05/23 08:30) trachycardic Medication List - Last Reconciled 08/05/23 by Stefan Royal MD atorvastatin 40 mg PO DAILY cyclobenzaprine 5 mg PO TID PRN 7 days finasteride 5 mg PO DAILY 90 days fluticasone propionate 50 mcg/actuation (Flonase Allergy Relief) 2 sprays intranasal DAILY hydrocodone-acetaminophen 5-325 mg 1 tab PO Q12H PRN lisinopril 40 mg PO DAILY multivitamin 1 tab PO DAILY naproxen 500 mg PO BID 7 days prednisone 20 mg PO DAILY 7 days [facility] Medical History Carpal tunnel syndrome Distal radius fracture, right Psoriasis Erectile dysfunction Hypercholesterolemia BPH (benign prostatic hyperplasia) Hypertension Surgical History H/O colonoscopy Previous back surgery History of umbilical hernia repair H/O hand surgery History of prostate biopsy Family History Mother Dementia Mental health disorder Father No problems noted. Social History Housing: House Alcohol intake: current Alcohol intake frequency: a few times a week Alcohol type: beer and wine Patient Tobacco Use Status: Former Tobacco user Quit Date: 2016 Tobacco use type: Cigar Years Smoked: stopped 2015 e-Cigarette/Vaping Use: Never Used Second Hand Smoke Exposure: No Current occupational status: retired Cognitive needs: No Hearing needs: No Vision needs: No Physical Exam Vital Signs: BMI result Body Mass Index 28.8 Const Other: Well-nourished well-developed very friendly male awake alert and oriented x3 in no acute distress Back/Spine/Pelvis Other: Low back examination shows right-sided paraspinal muscle, pain with range of motion, positive straight leg raise test on the right at 70 degrees Results Reviewed Results Reviewed: MRI report of the patient's lumbar spine shows ?there is a 1 cm sequestered disc fragment noted along the right posterior lateral aspect of the L3 vertebral body causing marked stenosis of the right lateral recess and right L3-L4 neural foramen? Assessment & Plan Assessment & Plan (1) Low back pain radiating to right leg: Code(s): M54.50 - Low back pain, unspecified; M79.604 - Pain in right leg Plan Mr. Newell presents with progressively worsening low back pain which radiates down his right leg as well as associated right leg weakness likely due to lumbar stenosis. Thus, I will arrange for the patient to have a follow-up appointment in our Neurosurgery Department here at [facility]. The patient will contact me prior to that appointment should his symptoms worsen in any way. Feel free to call me at any time should questions regarding his orthopedic management arise. I spent 22 minutes in reviewing the patient's records and imaging studies, seeing the patient and documenting in the medical record. Orders: Referrals Neurosurgery Referral M54.50 - Low back pain, unspecified, M79.604 - Pain in right leg Coding Level of Care Code Est Pt Level 2 (89513) Diagnoses Low back pain radiating to right leg M54.50; M79.604
== END 2023-08-05 08:50 | disposition home or self-care (01) ==
PROVIDERS: PCP Internal Medicine; Visit Provider Orthopaedic Surgery
DX: M54.50 Low back pain, unspecified (principal); M79.604 Pain in right leg
CPT/HCPCS: 99213

== ENCOUNTER → 2023-08-05 08:22 | Outpatient (BNVA) | payer MEDICARE, OTHER, SELFPAY | PROVIDERS: PCP Internal Medicine; Visit Provider Orthopaedic Surgery | DX: M54.50 Low back pain, unspecified (principal); M79.604 Pain in right leg | CPT/HCPCS: 99212 ==

== ENCOUNTER 2023-08-08 08:40 | Outpatient (AMB) | payer MEDICARE, OTHER, SELFPAY ==
--- NOTE | 2023-08-08 08:56 | HO.SPINEOV ---
Intake Intake Visit Reasons: Low back pain Intake Note: Mr. Newell is here today c/o low back pain. 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 Royal, Thank you for referring Don to our office today. He is a pleasant 68-year-old male who comes in today with a chief complaint of low back pain with radiation into his right lower extremity. He states that this has been ongoing and worsening since May 30 of this year. When describing his radiculopathy he states it starts in his low back shoots into his posterior buttocks wraps around his anterior thigh goes over the top of his knee and terminates over his anterior tibialis. 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 He states that he felt a twinge in his low back which 1st was only accompanied by a shooting pain into his posterior buttocks, and then gradually began wrapping around his anterior thigh and over his anterior knee. He reports associated symptoms of numbness, weakness, and burning on the right. He reports he has tried a plethora of [id number] medications including Tylenol, ibuprofen, pain patches, and pain cream/gels. He is attempted light at-home exercise/stretching with no relief. He is now to the point where he experiences 9/10 pain all day, and is only sleeping 2-3 hours per night at most. He states this has significantly affected his quality of life and left him ?miserable. ? PMH: High blood pressure, hyperlipidemia, BPH. Social hx: Patient does not smoke, reports no substance use. Medications: Atorvastatin, finasteride, cyclobenzaprine, fluticasone, lisinopril, multivitamin, naproxen, prednisone (burst dose). Allergies: NKDA. Physical exam: The patient has 4/5 strength diffusely in his right lower extremity. He reports this is both due to pain and subjective weakness on this side. He has 5/5 strength elsewhere. His right-sided patellar reflex is absent. The rest of his reflexes are 2+ intact. He has decreased sensation over his right anterior thigh and knee. The rest of his sensation is grossly intact. (+) right-sided straight leg raise. (-) Art's, (-) clonus. Imaging review: MRI of the lumbar spine completed at [facility] shows an acute disc herniation at L3-4 with an extruded disc fragment compressing the right L4 nerve root causing severe stenosis. Impression: Rosalba is a pleasant 68-year-old male who comes in today with a chief complaint of low back pain with radiation to his right lower extremity for the last 2 months. He states that it has gradually gotten worse to the point where he is a 9/10 pain all day and is only sleeping couple of hours per night. His life has been significantly affected and he can not enjoy meaningful activities any longer. Most concerning is that he is developed weakness, numbness, and an absent L4 patellar reflex on the right. I will be prescribing him a short course of gabapentin due to his obvious state of agony due to nerve pain, and will also be sending him to physical therapy for the time being although I do not believe it to be beneficial for him in the state that he is in, with the severity of this nerve root compression. These are both temporizing measures to try and alleviate some symptoms until this case can be discussed with Dr. Cool. I informed him that I will see Dr. Cool on Friday/Friday next week and will be presenting his case for a right-sided L3-4 microdiskectomy. The patient is agreeable to this plan and would like to move forward with surgery. Thank you for allowing us to care for your patient. The total time spent with this visit with this patient was 45 minutes reviewing history, physical exam, MRI imaging review, and implementation of treatment plan or further diagnostic testing Richard Cool MD,PhD [facility] Orders: Orders PT Evaluation and Treatment Today M54.16 - Radiculopathy, lumbar region Coding Level of Care Code Global (81149) Diagnoses Lumbar radiculopathy M54.16
== END 2023-08-08 10:31 | disposition home or self-care (01) ==
PROVIDERS: PCP Internal Medicine; Referring Provider Orthopaedic Surgery; Visit Provider Physician Assistant
DX: M54.16 Radiculopathy, lumbar region (principal)
CPT/HCPCS: 99204

== ENCOUNTER → 2023-08-08 08:40 | Outpatient (BNVA) | payer MEDICARE, OTHER, SELFPAY | PROVIDERS: PCP Internal Medicine; Visit Provider Physician Assistant | DX: M54.16 Radiculopathy, lumbar region (principal) | CPT/HCPCS: 99202 ==

== ENCOUNTER 2023-08-26 06:03 | Day surgery (SDC) | payer MEDICARE, OTHER, SELFPAY ==
[2023-08-22 12:47] VITALS: BMI 27.8
--- NOTE | 2023-08-22 13:45 | HO.ANESPROP2 ---
Documented by User: Melissa Gonzales NP 08/22/23 13:52 HPI - Anesthesia Eval Consult details Narrative: 68yo M for Right L3-L4 Microlumbar discectomy Phone PAT assessment only d/t late add on. Denies any concerning cardiopulmonary symptoms within limits of pain PMFSH Active Problems Active Problems: All Active Problems (Updated 08/08/23 @ 09:28 by OSCAR Gipson) Lumbar radiculopathy (Acute) Low back pain radiating to right leg (Acute) Right knee pain (Acute) Psoriasis (Acute) COVID-19 virus infection (Acute) Adult general medical exam (Acute) Screening for AAA (aortic abdominal aneurysm) (Acute) Left flank pain (Acute) LUQ abdominal pain (Acute) Rib pain on left side (Acute) Impaired fasting blood sugar (Acute) Nasal congestion (Acute) Annual physical exam (Acute) Overweight (BMI 25.0-29.9) (Acute) Tubular adenoma of colon (Acute) Sebaceous cyst (Acute) Elevated PSA (Acute) Hypercholesterolemia (Acute) BPH (benign prostatic hyperplasia) (Acute) Hypertension (Acute) Past Medical History Medical History (Updated 08/26/23 @ 08:21 by Kristel Tripathi MD) Nasal congestion LUQ abdominal pain Rib pain on left side Left flank pain Carpal tunnel syndrome Distal radius fracture, right Psoriasis Erectile dysfunction Hypercholesterolemia BPH (benign prostatic hyperplasia) Hypertension Family History Family History Mother Dementia Mental health disorder Father No problems noted. Family history of problems with anesthesia: No Surgical History Surgical History H/O colonoscopy Previous back surgery History of umbilical hernia repair H/O hand surgery History of prostate biopsy History of Problems with Anesthesia: No Social History Social History Housing: House Are you a primary resident care provider to a significant other at home: No Do you presently have visiting nurse or other home services: No Alcohol intake: current Alcohol intake frequency: a few times a week Alcohol type: beer and wine Comment: aware of trip hazard Patient Tobacco Use Status: Never used Tobacco Tobacco use type: Cigar e-Cigarette/Vaping Use: Never Used Second Hand Smoke Exposure: No Use of substances other than those prescribed or required for medical reasons: No Have you been hit, kicked, punched, or otherwise hurt by someone within the past year? If so, by whom?: No Are you DNR?: No Advance Directives: No Advance Directives Information Provided: Yes Advance Directives on File: No Poor oral hygiene: No Current occupational status: retired Cognitive needs: No Hearing needs: No Vision needs: No Meds Allergies Allergy/AdvReac Type Severity Reaction Status Date / Time amlodipine AdvReac Intermediate trachycardi Verified 08/22/23 12:46 c Home Medications Medication Instructions Recorded Confirmed Last Taken Type multivitamin 1 tab PO DAILY 03/10/23 08/22/23 Unknown History atorvastatin 40 mg tablet 40 mg PO BEDTIME 08/22/23 08/22/23 Unknown History Exam Height,Weight and Vital Signs: Height 5 ft 9 in Weight 85.275 kg Pertinent Lab Results Pertinent Lab Results: Laboratory Tests 03/04/23 07:33 WBC 6.9 Hgb 14.8 Hct 45.9 Plt Count 329 Sodium 141 Potassium 4.5 Chloride 107 Carbon Dioxide 24 BUN 12 Creatinine 0.77 Assessment and Plan Assessment Anesthesia Assessment: Chart Reviewed Final Anesthetic Review Family History of Problems with Anesthesia: No History of Problems with Anesthesia: No Documented by User: Kristel Tripathi MD 08/26/23 08:25 [facility] Active Problems Active Problems: All Active Problems (Updated 08/26/23 @ 07:01 by Kristel Tripathi MD) Lumbar radiculopathy (Acute) H/o Low back pain at onset. Now pain Right hip radiating to right foot Right knee pain (Acute) Psoriasis (Acute) Adult general medical exam (Acute) Screening for AAA (aortic abdominal aneurysm) (Acute) Impaired fasting blood sugar (Acute) Overweight (BMI 25.0-29.9) (Acute) Tubular adenoma of colon (Acute) Sebaceous cyst (Acute) Elevated PSA (Acute) Hypercholesterolemia (Acute) BPH (benign prostatic hyperplasia) (Acute) Hypertension (Acute) Past Medical History Medical History (Updated 08/26/23 @ 08:21 by Kristel Tripathi MD) Nasal congestion LUQ abdominal pain Rib pain on left side Left flank pain Carpal tunnel syndrome Distal radius fracture, right Psoriasis Erectile dysfunction Hypercholesterolemia BPH (benign prostatic hyperplasia) Hypertension Family History Family History Mother Dementia Mental health disorder Father No problems noted. Family history of problems with anesthesia: No Surgical History Surgical History H/O colonoscopy Previous back surgery History of umbilical hernia repair H/O hand surgery History of prostate biopsy History of Problems with Anesthesia: No Social History Social History Housing: House Are you a primary resident care provider to a significant other at home: No Do you presently have visiting nurse or other home services: No Alcohol intake: current Alcohol intake frequency: a few times a week Alcohol type: beer and wine Comment: aware of trip hazard Patient Tobacco Use Status: Never used Tobacco Tobacco use type: Cigar e-Cigarette/Vaping Use: Never Used Second Hand Smoke Exposure: No Use of substances other than those prescribed or required for medical reasons: No Have you been hit, kicked, punched, or otherwise hurt by someone within the past year? If so, by whom?: No Are you DNR?: No Advance Directives: No Advance Directives Information Provided: Yes Advance Directives on File: No Poor oral hygiene: No Current occupational status: retired Cognitive needs: No Hearing needs: No Vision needs: No Meds Allergies Allergy/AdvReac Type Severity Reaction Status Date / Time amlodipine AdvReac Intermediate trachycardi Verified 08/22/23 12:46 c Home Medications Medication Instructions Recorded Confirmed Last Taken Type multivitamin 1 tab PO DAILY 03/10/23 08/22/23 Unknown History atorvastatin 40 mg tablet 40 mg PO BEDTIME 08/22/23 08/22/23 Unknown History Exam Height,Weight and Vital Signs: Height 5 ft 9 in Weight 85.275 kg Vital Signs Temp Pulse Resp BP Pulse Ox O2 Del Method 08/26/23 06:18 97.5 F 99 18 175/100 H 97 Room Air Airway Mallampati Class: III TM Dist: >3cm Neck ROM: Full Loose/Missing/Broken Teeth: No (Denies broken, loose, missing teeth) Heart: RRR Lungs: CTAB Assessment and Plan Assessment Anesthesia Assessment: Anesthesia Plan Discussed and Chart Reviewed Final Anesthetic Review Family History of Problems with Anesthesia: No History of Problems with Anesthesia: No NPO: Yes ASA Class: II Final Preanesthetic Review: No Changes in Pt Med Stat, Meds/Allgs Chart Reviewed and Anes Risks/Benef Reviewed Patient Risk: Low Procedure Risk: Low Assessment/Block/Sedation in SS: Assess/Block/Sedation-SS Anesthetic Plan Anesthetic Plan: GA Disposition: Standard PACU
[2023-08-26] VITALS (11 sets, daily range): BP systolic 127–175; BP diastolic 71–100; PULSE 82–108; RESP 12–18; TEMP 36.1–36.4; O2SAT 95–99; BMI 27.9
--- NOTE | ~2023-08-26 | FL_ITS ---
EXAMINATION: XR FLUOROSCOPY WITH IMAGES CLINICAL INFORMATION: L3-L4 microlumbar discectomy COMPARISON: None available. TECHNIQUE: Fluoroscopy Supervised By: Dr. Cool. Fluoroscopy Time: 3.8 seconds. Cumulative Dose: 2.5736 mGy. DAP: 1.1195 Gycm2. Images: 1. FINDINGS: Single intraoperative image identifies metallic device directed at the inferior aspect of the L3 vertebral body. Please refer to procedural note for full details. FL/FL guidance in OR IMPRESSION: Intraoperative fluoroscopy.
[2023-08-26] MEDS: Gabapentin 300 MG CAPSULE PO (06:30)
[2023-08-26] MEDS: methocarbamoL 750 MG TABLET PO (06:30)
[2023-08-26] MEDS: Lactated Ringers 1,000 ML 100 ML IVCONT (06:30)
--- NOTE | 2023-08-26 07:24 | MHC.SHP ---
Pre-Procedural Eval Section A - 24 Hr Update-Section A only Date of Service: 08/26/23 Section B - Complete if H&P > 30 days Chief Complaint: Radiculopathy, lumbar region Allergies: Allergies Allergy/AdvReac Type Severity Reaction Status Date / Time amlodipine AdvReac Intermediate trachycardi Verified 08/22/23 12:46 c Review of Systems Sugical H&P ROS: Negative: Constitution, Cardiovascular, Respiratory, Neurological, Psychiatric, Hem-Onc, Allergic/Immunologic, Gastrointestinal, Genitourinary, Musculoskeletal, Integumentary, Endocrine and Eyes/Ears/Nose/Throat Exam Surgical H&P Exam: Not Evaluated: HEENT, Not Evaluated: Heart, Not Evaluated: Lungs, Not Evaluated: Extremities, Not Evaluated: Abdomen, Not Evaluated: Skin and Not Evaluated: Neurological Plan Diagnosis/Plan: Unchanged I have reviewed the history and physical and performed a pertinent physical examination on my patient. No changes have occurred unless specified. Plan remains the same, right-sided L3-4 microdiskectomy. Time Spent With Patient Time: Total time managing care of this patient today __15_ minutes.
--- NOTE | 2023-08-26 09:32 | P.DS_ITS ---
DS: Providers Provider Date of Service: 08/26/23 Primary care physician: Adán Light MD DS: Summary Time Attestation Discharge Coordination Time (in mins): 10 Quality: Safe Use of Opioids Does Pt have an Active Cancer Diagnosis on the Problem List?: No Quality: Stroke Does the patient have a stroke diagnosis?: No Physical Exam Vital Signs: Vital Signs: Last Vital Signs Temp 97 F 08/26/23 08:55 Pulse 99 08/26/23 09:10 Resp 16 08/26/23 09:10 BP 155/76 H 08/26/23 09:10 Pulse Ox 95 08/26/23 09:10 O2 Del Method Room Air 08/26/23 09:10 O2 Flow Rate 6 08/26/23 09:00 BMI result Body Mass Index 27.9 Discharge Plan Discharge Patient Disposition: Home, Self-Care Referrals: Adán Light MD [Primary Care Provider] - 1 Week Discharge Medications: New oxycodone 5 mg tablet 5 mg PO Q6H PRN (Reason: severe postoperative pain) Qty: 30 0RF Rx Instructions: Partial Fill upon patient request. Continued finasteride 5 mg tablet 5 mg PO DAILY 90 Days Qty: 90 1RF lisinopril 40 mg tablet 40 mg PO DAILY Qty: 90 3RF fluticasone propionate [Flonase Allergy Relief] 50 mcg/actuation spray,s uspension 2 spray intranasal DAILY Qty: 16 3RF Rx Instructions: administer into each nostril atorvastatin 40 mg tablet 40 mg PO BEDTIME multivitamin Tablet 1 tab PO DAILY gabapentin 300 mg capsule 300 mg PO BID Qty: 30 0RF Held hydrocodone-acetaminophen 5-325 mg tablet 1 tab PO Q12H PRN (Reason: pain) Qty: 30 0RF Hold Instructions: Resume on 09/16/23. Resume after Oxycodone prescription if still needed Rx Instructions: Partial Fill upon patient request. Discharge Orders: Discharge Order (Routine); Ordered 08/26/23 Ordered By: Richard Estrada Diet: Advance to usual diet Activity on Discharge: As tolerated Activity Restrictions/Additional Instructions: After your spinal surgery we ask you to observe the following restrictions/guidelines: Activity: It is normal to feel some discomfort as you increase your activity, but that will improve with time. We ask you avoid heavy lifting or acitivities that cause pain. As a general rule, 8lbs is a safe limit for lifting right after surgery. Walk as much as you feel comfortable but not to exhaustion. You will feel extra tired the first few days after surgery. Stay well hydrated. It is OK to walk up and down stairs You may return to driving when you are off narcotics (such as vicodin, oxycodone, dilaudid, etc), and you are back to normal functional capacity. If you have any concerns please check with office before driving. Return to work is specific to each patient and each surgery, so please speak with your doctor/PA at first follow up. Please bring paperwork such as FMLA at that time if you need it filled out. Medications: We will give you a short supply of narcotics after surgery (usually one weeks worth). If you need more please call the office but do not use more than prescribed. You will need to give our office 48 hours notice if you need narcotics refilled and we do not fill narcotics on weekends or evenings. If you are on a narcotic, it is a good idea to take a stool softener such as colace or senna to avoid constipation If you take blood thinner such as aspirin, Plavix, Coumadin, Effient, Eliquis etc for conditions such as Afib, DVT, Pulmonary embolus, coronary disease, stents etc please speak with your surgeon about specific details as to when you can resume these medications. You can resume NSAIDs on post op day 1 (eg: Motrin, Naproxen, etc). Follow up: Please call the office, , after surgery to arrange a 3 week follow up for wound check. Wound Care: You may remove your dressing on the first day after surgery. ?You may ?leave open to air. Please do not remove the steri strips underneath. they will fall off on their own in one week. IT IS NORMAL FOR THE WOUND TO OOZE OR BE BLOODY FOR A FEW DAYS AFTER SURGERY. ?IF THIS HAPPENS JUST PLACE NEW DRESSING OVER IT TO AVOID STAINING CLOTHES. You may shower on post op day # 1 We ask that you do not let the water soak the wound. If it does get wet, just towel dry lightly. Please do not scrub your incision or place any type of chemical/ointment on the wound. No tub baths, pools or jacuzzis for one month. If you have any leaking or redness from your wound, or fevers, please call the office.
--- NOTE | 2023-09-09 16:25 | W.PM.OPN ---
Operative Note Operative Note Date of Service: 08/26/23 Narrative: Preoperative diagnosis: Right L4 lumbar radiculopathy due to disc herniation Postoperative diagnosis: Same Procedure: Right L3-4 lumbar microdiskectomy with microscope Surgeon: Zack Cool MD, PhD Athletic Coordinator: OSCAR Gipson This 68-year-old gentleman is suffering from a right L3-4 lumbar disc herniation compressing the right L4 nerve root. The patient was offered a lumbar microdiskectomy to decompress the nerve root. The procedure complications were explained. The patient was consented. The patient was brought to the operating room and endotracheally intubated. The patient was turned in a prone position on the Harry frame. Prepping and draping was done followed by time-out. A mid lumbar incision was made followed by release of the paravertebral muscles on the right side to expose the L3-4 interspace. An intraoperative x-rays obtained to confirm the correct level. The microscope was brought in. A L3 laminotomy was done followed by opening of the flavum ligament. The L4 nerve root was identified and retracted medially to expose the L3-4 disc space. I could palpate a disc herniation medial from the L4 nerve root, which I carefully removed with a pituitary. The disc space was inspected and any residual disc fragments were removed. This resulted in an excellent decompression of the L4 nerve root. Hemostasis was done. The microscope was removed. Marcaine was injected intramuscularly.The incision was closed in two layers. Steri-Strips used to approximate seizure. An op-site were taken there was used to cover the incision. All sponge and needle counts were correct. Patient was extubated and transported in stable condition to recovery room. this procedure was done with the aid of a physician front office medical assistant who performed the initial exposure until the microscope was brought in and performed the closure of the incision. Anesthesia: General Blood loss: 10 mL Complications: None Specimen: None Surgical time: Less than 60 minutes Disposition: Discharge home
== END 2023-08-26 13:40 | disposition home or self-care (01) ==
PROVIDERS: PCP Internal Medicine; Visit Provider Neurological Surgery
PROC: (CPT 63030; principal; 2023-08-26 07:30)
DX: M54.16 Radiculopathy, lumbar region (principal); M51.26 Other intervertebral disc displacement, lumbar region; R20.0 Anesthesia of skin; I10 Essential (primary) hypertension; E78.5 Hyperlipidemia, unspecified; N40.0 Benign prostatic hyperplasia without lower urinary tract symptoms; Z79.1 Long term (current) use of non-steroidal anti-inflammatories (NSAID); Z79.51 Long term (current) use of inhaled steroids; Z79.899 Other long term (current) drug therapy; Z88.8 Allergy status to other drugs, medicaments and biological substances; Z98.890 Other specified postprocedural states
CPT/HCPCS: 63030; J0131; J0690; J1100; J1885; J2250; J2405; J2704; J3010

== ENCOUNTER → 2023-08-26 06:03 | Outpatient (BNV) | payer MEDICARE, OTHER, SELFPAY | PROVIDERS: PCP Internal Medicine; Visit Provider Physician Assistant | DX: M54.16 Radiculopathy, lumbar region (principal) | CPT/HCPCS: 63030; 99499 ==

== ENCOUNTER 2023-09-15 08:21 | Outpatient (REF) | payer MEDICARE, OTHER, SELFPAY ==
[2023-09-15 10:40] LABS: Estimated Average Glucose 117 mg/dL; Hemoglobin A1c % 5.7 % (<6.0)
[2023-09-15 10:56] LABS: Alanine Aminotransferase 15 U/L (0-40); Albumin Level 4.4 g/dL (3.5-5.0); Alkaline Phosphatase 99 U/L (39-117); Anion Gap 12 (12-20); Aspartate Amino Transferase 13 U/L (5-37); Bilirubin Total 0.5 mg/dL (0.0-1.0); Blood Urea Nitrogen 11 mg/dL (9-16); Calcium 10.1 mg/dL (8.4-10.2); Carbon Dioxide 27 mmol/L (22-29); Chloride 106 mmol/L (96-108); Cholesterol 217 mg/dL (<200); Estimated Glomerular Filt Rate > 60; Glucose Random 114 mg/dL (60-115); HDL Cholesterol 43 mg/dL (>40); LDL Cholesterol Calculated 132 mg/dL (<100); Potassium 3.7 mmol/L (3.3-5.1); Sodium 141 mmol/L (135-145); Total Protein 7.3 g/dL (6.5-8.0); Triglycerides 214 mg/dL (<150)
[2023-09-15 11:14] LABS: Free T4 (Free Thyroxine) 0.91 ng/dL (0.71-1.85); Thyroid Stimulating Hormone 2.34 uIU/mL (0.32-4.0)
== END 2023-09-15 08:22 | disposition home or self-care (01) ==
LOC: HO.HMGCLDS 08:21
PROVIDERS: PCP Internal Medicine; Visit Provider Internal Medicine
DX: E78.00 Pure hypercholesterolemia, unspecified (principal); R73.01 Impaired fasting glucose
CPT/HCPCS: 36415; 80053; 80061; 83036; 84439; 84443

== ENCOUNTER 2023-09-16 15:03 | Outpatient (AMB) | payer MEDICARE, OTHER, SELFPAY ==
--- NOTE | 2023-09-16 15:28 | HO.SPINEOV ---
Intake Visit Reasons: 1st post op Intake Note: Mr. Newell is here today for his 1st post-op appointment. 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 To recap Mich had a severe right-sided disc herniation that had caused significant weakness in his right lower extremity by the time of surgery. He has had good return of strength on the right side, but still struggles quite a bit with knee extension on the right. He has been ambulating with the use of a walker, but states he has been trying to get himself off of it and has been engaging with physical therapy. He does state that the shooting pains down his right side have largely resolved, but he still has a feeling of tingling/numbness below his right knee in the morning when waking up. This resolves as he ambulates throughout the day. Strength testing in his right lower extremities reveals 2/5 strength with knee extension on the right and 5/5 strength elsewhere in his right lower extremity. His L4 reflex his still absent on the right. His incision appears well healed, closed, with no signs of drainage. Thankfully, Paul's radiculopathy has resolved although he is still left with a right-sided L4 weakness. I am hopeful that this will begin to resolve although he may have permanent nerve damage on this side from his acute disc herniation which we discussed during this visit and he is aware of. I will follow up with Mich in 6 weeks to evaluate his continued healing progress. In the meantime he will continue going to physical therapy. Richard Cool MD,PhD [facility] [place] Coding Level of Care Code Global (99476) Diagnoses S/P lumbar microdiscectomy Z98.890
== END 2023-09-16 15:47 | disposition home or self-care (01) ==
PROVIDERS: PCP Internal Medicine; Visit Provider Physician Assistant
DX: Z98.890 Other specified postprocedural states (principal)
CPT/HCPCS: 99024

== ENCOUNTER → 2023-09-16 15:03 | Outpatient (BNVA) | payer MEDICARE, OTHER, SELFPAY | PROVIDERS: PCP Internal Medicine; Visit Provider Physician Assistant | DX: Z98.890 Other specified postprocedural states (principal) | CPT/HCPCS: 99212 ==

== ENCOUNTER 2023-09-17 11:03 | Outpatient (AMB) | payer MEDICARE, OTHER, SELFPAY ==
[2023-09-17 11:04] VITALS: BP 155/76
--- NOTE | 2023-09-17 11:04 | A.OFFPC_ITS ---
Vital Signs 09/17/23 11:04 Weight 179 lb BP 155/76 H Comment pt states 1 week ago BP READING Intake Visit Reasons: Hypertension Intake Note: Patient is here to follow up on HTN Allergies amlodipine Adverse Reaction (Intermediate, Verified 08/22/23 12:46) trachycardic Tobacco use date assessed: 09/17/23 Fall risk assessment: 1 Fall in past year (pt states due to spine surgery) Last assessed Fall Risk: 09/17/23 Dental Screening Dental Screen Date: 09/17/23 HPI Hypertension HPI Details 68-year-old overweight male with hyperte nsion BPH and hypercholesterolemia last seen in February 2023 for physical exam. Patient is up-to-date with colonoscopy. Review of the notes had lumbar microdiskectomy L3- L4 right in August 2023 l BP right now is high most often [facility] Medical History (Updated 08/26/23 @ 08:21 by Kristel Tripathi MD) Nasal congestion LUQ abdominal pain Rib pain on left side Left flank pain Carpal tunnel syndrome Distal radius fracture, right Psoriasis Erectile dysfunction Hypercholesterolemia BPH (benign prostatic hyperplasia) Hypertension Surgical History (Updated 09/17/23 @ 12:21 by Adán Light MD) H/O colonoscopy Previous back surgery History of umbilical hernia repair H/O hand surgery History of prostate biopsy Family History Mother Dementia Mental health disorder Father No problems noted. Social History Housing: House Are you a primary respiratory care program director to a significant other at home: No Do you presently have visiting nurse or other home services: No Alcohol intake: current Alcohol intake frequency: a few times a week Alcohol t ype: beer and wine Comment: aware of trip hazard Patient Tobacco Use Status: Never used Tobacco Tobacco use type: Cigar e-Cigarette/Vaping Use: Never Used Second Hand Smoke Exposure: No Current occupational status: retired Cognitive needs: No Hearing needs: No Vision needs: No Questionnaire PHQ-9 Over the last 2 weeks, how often have you been bothered by any of the following problems? 1. Little interest or pleasure in doing things: not at all 2. Feeling down, depressed, or hopeless: not at all 3. Trouble falling or staying asleep, or sleeping too much: not at all 4. Feeling tired or having little energy: not at all 5. Poor appetite or overeating: not at all 6. Feeling bad about yourself - or that you are a failure or have let yourself or your family down: not at all 7. Trouble concentrating on things, such as reading the newspaper or watching television: not at all 8. Moving or speaking so slowly that other people could have noticed. Or the opposite - being so fidgety or restless that you have been moving around a lot more than usual: not at all 9. Thoughts that you would be better off or of hurting yourself in some way: not at all Total score: 0 Depression Screening Interpretation: Negative Depression Screening Done: Yes Source: Developed by Drs. Evelio Vivas, Anuradha Webb, Kirk Euceda and colleagues, with an educational austen from [employer]. Thrive Questionnaire Date Thrive assessed: 09/17/23 I am a: Patient What is your living situation today?: I have a steady place to live Within the past 12 months, did the food you bought not last and you didn't have the money to get more?: Never true Within the past 12 months, did you worry whether your food would run out before you got money to buy more?: Never true Do you have trouble paying for medicines?: No Do you have trouble getting transportation to medical appointments?: No Do you have trouble paying your heating and electricity bill?: No Do you have trouble taking care of your child, family member or friend?: No Do you have trouble with day-to-day activities such as bathing, preparing meals, shopping, managing finances, etc.?: No Are you currently unemployed and looking for a job?: No Are you interested in more education?: No Please select the resources that you would like help with: None Currently or been in a relationship where the following occur: no concerns reported THRIVE Score: 0 AUDIT C Alcohol Use Questionnaire (AUDIT-C) 1. How often do you have a drink containing alcohol?: 2-3 times a week 2. How many drinks containing alcohol do you have on a typical day when you are drinking?: 1 or 2 3. How often do you have six or more drinks on one occasion?: Less than monthly Total Score: 4 SULMA-7 AMB Questionnaire SULMA-7 Date SULMA - 7 assessed: 03/10/23 Feeling nervous, anxious, or on edge: 0 = Not at all Not being able to stop or control worryin = Not at all Worrying too much about different things: 0 = Not at all Trouble relaxin = Not at all Being so restless that it is hard to sit still: 0 = Not at all Becoming easily annoyed or irritable: 0 = Not at all Feeling afraid as if something awful might happen: 0 = Not at all Total SULMA-7 score (0-4 normal; 5-9 mild; 10-14 moderate; 15-21 severe): 0 Source: Developed by Drs. Evelio Vivas, Anuradha Webb, Kirk Euceda and colleagues, with an educational austen from [employer]. Physical exam (Primary Care) Vital Signs: Last Vital Signs BP 155/76 H 09/17/23 11:04 Tobacco/Smoking Status: Tobacco use Status Tobacco use date assessed 09/17/23 09/17/23 11:07 Patient Tobacco Use Status Never used Tobacco 09/17/23 11:07 Tobacco use type Cigar 09/17/23 11:07 e-Cigarette/Vaping Use Never Used 09/17/23 11:07 PHQ-9: PHQ-9 Score PHQ-9: Total score 0 09/17/23 11:07 Depression Screening Interpretation: Negative Thrive Assessment: Date of Thrive Assessment Date Thrive assessed 09/17/23 09/17/23 11:07 Currently or been in a relationship where the following occur: no concerns reported Telehealth Telehealth Telehealth Platform: Telephone Location of provider rendering services: practice address Location of patient: address on file Patient Identification confirmed using: Name, : Yes Telehealth method: video (iphone) Patient verbally consented to treatment: Yes Patient verbally consented to billing insurance company: Yes Patient informed of any privacy concerns related to visit: Yes Minutes spent on Phone/Video with Pt.: 25 Assessment and Plan Assessment & Plan (1) S/P lumbar microdiscectomy: Comment: 08/26/2023 Code(s): Z98.890 - Other specified postprocedural states Plan: Patient continue to follow-up with the neurosurgeon (2) Hypertension: Code(s): I10 - Essential (primary) hypertension Qualifiers: Hypertension type: essential hypertension Qualified Code(s): I10 - Essential (primary) hypertension Plan: Continue with blood pressure medication. Decrease salt intake and exercise presently on lisinopril 40 mg once a day (3) Hypercholesterolemia: Code(s): E78.00 - Pure hypercholesterolemia, unspecified Plan: Avoid fried foods, chicken skin, eggs, butter margarine, pastries and meat. Be it pork or beef they have a lot of cholesterol blood work done August 2023 (4) Impaired fasting blood sugar: Code(s): R73.01 - Impaired fasting glucose Plan: Decrease the amount of carbohydrate intake, pasta, bread, rice and potatoes are all sugar and that is aside from all the sweet stuff, remember that fruits are good but they are Sweet also. Coding Level of Care Code Tele Est Pt Level 4 (67562) Diagnoses S/P lumbar microdiscectomy Z98.890 Essential hypertension I10 Hypertension type: essential hypertension Hypercholesterolemia E78.00 Impaired fasting blood sugar R73.01
== END 2023-09-17 15:52 | disposition home or self-care (01) ==
LOC: HO.HMGH 11:03
PROVIDERS: PCP Internal Medicine; Visit Provider Internal Medicine
DX: I10 Essential (primary) hypertension (principal); E78.00 Pure hypercholesterolemia, unspecified; R73.01 Impaired fasting glucose
CPT/HCPCS: 99214

== ENCOUNTER 2023-10-28 14:13 | Outpatient (AMB) | payer MEDICARE, OTHER, SELFPAY ==
--- NOTE | 2023-10-28 14:13 | HO.SPINEOV ---
Intake Visit Reasons: 2nd post op Intake Note: Mr. Newell is here today for his 2nd post-op. 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 To recap he previously had a severe left-sided L4 nerve root impingement which was corrected via microdiskectomy. Unfortunately he was left with some persistent motor deficits from the acute impingement. He reports he is continued to follow up with physical therapy and practices exercises at home. He has been walking as much as possible and no longer needs to utilize his walker. He is ambulating on his own with the use of a cane. He does report continued subjective weakness but feels as though his quadriceps muscles are activating more day by day. He asked about returning to driving, which I encouraged him to do only if he feels as though he is able to articulate the movement of his feet without any delay. On exam he continues to have a absent L4 reflex on the right, but has nearly antigravity right-sided knee extension. His plantar flexion and dorsiflexion are intact bilaterally. Full range of motion of bilateral ankles. No issue with hip flexion bilaterally. I would like to follow up with Mich again in 2 months to evaluate for continued healing progress since surgery. Richard Cool MD,PhD [facility] Coding Level of Care Code Global (37688) Diagnoses S/P lumbar microdiscectomy Z98.890
== END 2023-10-28 14:44 | disposition home or self-care (01) ==
PROVIDERS: PCP Internal Medicine; Visit Provider Physician Assistant
DX: Z98.890 Other specified postprocedural states (principal)
CPT/HCPCS: 99024

== ENCOUNTER → 2023-10-28 14:13 | Outpatient (BNVA) | payer MEDICARE, OTHER, SELFPAY | PROVIDERS: PCP Internal Medicine; Visit Provider Physician Assistant | DX: Z48.89 Encounter for other specified surgical aftercare (principal) | CPT/HCPCS: 99212 ==

== ENCOUNTER 2023-12-31 14:13 | Outpatient (AMB) | payer MEDICARE, OTHER, SELFPAY ==
--- NOTE | 2023-12-31 14:29 | A.SPINEOV_ITS ---
Intake Visit Reasons: 3rd post op Intake Note: Mr. Newell is here today for his 3rd Post-op visit. Oral Communication Instructor Required: No Allergies amlodipine Adverse Reaction (Intermediate, Verified 12/31/23 14:34) trachycardic Assessment & Plan Assessment & Plan (1) S/P lumbar microdiscectomy: Comment: 08/26/2023 Code(s): Z98.890 - Other specified postprocedural states Category: Surgical Plan Procedure: R L3-4 mcirodiskectomy Mich is a pleasant 68 year old male who comes in today for a subsequent follow-up visit after having an L3-4 microdiskectomy completed. To recap he had significant weakness on the right side of his lower extremity after surgery. Last time I saw him his right knee extension was only really antigravity. Today, after working extensively with physical therapy here at [facility], I am happy to report that he has nearly full strength with right-sided knee extension. He states he feels much better, and almost feels ?completely back to my normal self.? He reports no new neurological deficits and ambulates much better than the last time that I saw him. There is no need for continued routine follow-up with done. He may be discharged as a patient. Richard Cool MD,PhD [facility] Coding Level of Care Code Global (61911) Diagnoses S/P lumbar microdiscectomy Z98.890
== END 2023-12-31 14:55 | disposition home or self-care (01) ==
PROVIDERS: PCP Internal Medicine; Visit Provider Physician Assistant
DX: Z98.890 Other specified postprocedural states (principal)
CPT/HCPCS: 99212

== ENCOUNTER → 2023-12-31 14:13 | Outpatient (BNVA) | payer MEDICARE, OTHER, SELFPAY | PROVIDERS: PCP Internal Medicine; Visit Provider Physician Assistant | DX: Z98.890 Other specified postprocedural states (principal) | CPT/HCPCS: 99212 ==

== ENCOUNTER 2024-01-15 11:23 | Outpatient (AMB) | payer MEDICARE, OTHER, SELFPAY ==
--- NOTE | 2024-01-15 11:26 | AM.OFFWIN_ITS ---
Intake Vital Signs 3 01/15/24 11:27 Height 5 ft 9 in Weight 192 lb BMI 28.4 BP 132/82 Blood Pressure Location Rt brachial Position Sitting Pulse 88 Pulse Source Pulse Oximeter Temp 98.1 F Temp Source Oral Pulse Oximetry (%) 98 Oxygen Delivery Method Room Air Intake Visit Reasons: EP- Abscess on middle back Intake Note: pt c/o abscess on middle back. Noticed a couple days ago. Pain to touch Patient Tobacco Use Status: Never used Tobacco Allergies amlodipine Adverse Reaction (Intermediate, Verified 01/15/24 11:26) trachycardic Do you need a note to return to daycare/school/sports/work: No HPI HPI Comments 2 History of Present Illness0 Details 68 y/o male patient who presents to the walk in clinic with c/o a small Abscess on his back. He noticed it few days ago. Denies fevers, chills, nausea or vomiting. [facility] Medical History (Updated 08/26/23 @ 08:21 by Kristel Tripathi MD) Nasal congestion LUQ abdominal pain Rib pain on left side Left flank pain Carpal tunnel syndrome Distal radius fracture, right Psoriasis Erectile dysfunction Hypercholesterolemia BPH (benign prostatic hyperplasia) Hypertension Surgical History (Updated 09/17/23 @ 12:21 by Adán Light MD) H/O colonoscopy Previous back surgery History of umbilical hernia repair H/O hand surgery History of prostate biopsy Family History Mother Dementia Mental health disorder Father No problems noted. Social History Housing: House Are you a primary healthcare facility administrator to a significant other at home: No Do you presently have visiting nurse or other home services: No Alcohol intake: current Alcohol intake frequency: a few times a week Alcohol type: beer and wine Comment: aware of trip hazard Patient Tobacco Use Status: Never used Tobacco Tobacco use type: Cigar e-Cigarette/Vaping Use: Never Used Second Hand Smoke Exposure: No Current occupational status: retired Cognitive needs: No Hearing needs: No Vision needs: No Review of Systems Const All systems reviewed & are unremarkable except as noted in HPI and below Physical Exam Vital Signs: Last Vital Signs Temp 98.1 F 01/15/24 11:27 Pulse 88 01/15/24 11:27 BP 132/82 08/22/24 11:27 Pulse Ox 98 01/15/24 11:27 Oxygen Delivery Method Room Air 01/15/24 11:27 BMI result Body Mass Index 28.4 Const General: cooperative and no acute distress Orientation/consciousness: patient oriented x3 Skin General skin exam: dry skin and erythema Full body images: 2 1. Small lesion, red and tender, size of quarter. No drainage. Neuro General: patient oriented x3, gait normal and moves all extremities Psych Speech and movement: Normal speech and movement present Assessment & Plan Assessment & Plan (1) Abscess of skin and subcutaneous tissue: Code(s): L02.91 - Cutaneous abscess, unspecified Qualifiers: Site of cutaneous abscess: trunk Site of cutaneous abscess of trunk: b ack Qualified Code(s): L02.212 - Cutaneous abscess of back [any part, except buttock] Plan: Warm compress over the area, to promote drainage Apply topical Abx BID. No need for systemic Abx now. Medications: New 2 mupirocin 2% 1 appl topical BID 15 grams 0RF L02.212 - Cutaneous abscess of back [any part, except buttock] Coding Level of Care Code Est Pt Level 3 (09002) Diagnoses Cutaneous abscess of back excluding buttocks L02.212 Site of cutaneous abscess: trunk Site of cutaneous abscess of trunk: back Time Spent (min) 15
[2024-01-15 11:27] VITALS: BP 132/82; PULSE 88; TEMP 36.7; O2SAT 98; BMI 28.4
== END 2024-01-15 12:15 | disposition home or self-care (01) ==
PROVIDERS: PCP Internal Medicine; Visit Provider Nurse Practitioner Family
DX: L02.212 Cutaneous abscess of back [any part, except buttock and flank] (principal)
CPT/HCPCS: 99213

== ENCOUNTER 2024-01-15 11:38 | Outpatient (REF) | payer MEDICARE, OTHER, SELFPAY ==
[2024-01-15 14:05] LABS: Prostate Specific Antigen 2.32 ng/mL (<0.05-4.0)
== END 2024-01-15 11:39 | disposition home or self-care (01) ==
LOC: HO.HMGCLDS 11:38
PROVIDERS: PCP Internal Medicine; Visit Provider Urology
DX: R97.20 Elevated prostate specific antigen [PSA] (principal); Z12.5 Encounter for screening for malignant neoplasm of prostate
CPT/HCPCS: 36415; 84153

== ENCOUNTER 2024-01-20 10:00 | Outpatient (RCR) | payer MEDICARE, OTHER, SELFPAY ==
--- NOTE | 2023-09-10 11:37 | MHC.PT.EP ---
[facility] [place] Office [place] Office [place] Office [address] Rick Michael [address] [phone] F: [phone] F: [phone] F: [phone] F: [phone] Physical Therapy Plan of Care Date of Evaluation: 09/10/23 Date of Surgery: 08/26/23 Diagnosis: Radiculopathy, lumbar region Right L3-4 lumbar microdiskectomy with microscope Assessment: Pt is a very pleasant and motivated 68yo M who presents to PT s/p L3-[address] Cool on 08/26/23. PT evaluation limited as pt has not followed up with spine clinic since surgery (follow up is 09/16/23). Pt presents to PT with current impairments in pain, radicular symptoms into RLE, decreased sensation on RLE, decreased strength on RLE, and impaired gait. He is limited functionally by sitting>standing, sleeping, prolonged walking, and stair navigation. He has significant weakness throughout R knee extension placing him at increased risk of falling. He is an excellent candidate for skilled PT in order to address current impairments to facilitate return to PLOF. He is recommended to be seen 2x/week for 4 weeks and will be reassessed at that time Frequency and Duration: The patient will be seen 2x/week for 4 weeks Short Term Goals: Pt will be I with HEP to promote self management of symptoms Pt will demonstrate improvements in posture and body mechanics throughout the day Pt will improve R knee extension strength to at least 3/5 Postbed Stitcher Goals: Pt will perform sit<>stands from varying surfaces independently without UE assist Pt will improve R knee extension strength to at least 4+/5 to assist with standing and walking and to prevent knee buckling Pt will demonstrate ability to ascend/descend 1 flight of stairs with reciprocal pattern safely Treatment Plan: Modalities to reduce pain, spasms and effusion. Manual therapy to restore motion and function. Therapeutic exercise to improve strength and flexibility. Neuromuscular re-education for posture and balance. Therapeutic activities to return to functional activities of daily living. Electronically signed by: Cristal Cross, PT, DPT Please sign and return to therapist. Thank you for your referral.
--- NOTE | 2024-01-20 16:14 | MHC.PT.DC ---
[facility] [place] Office [place] Office [place] Office [address] Rick Michael [address] [phone] F: [phone] F: [phone] F: [phone] F: [phone] Physical Therapy Discharge Report Diagnosis: Radiculopathy, lumbar region Right L3-4 lumbar microdiskectomy with microscope Date of Surgery: 08/26/23 Date of Evaluation: 09/10/23 Date of Discharge: 01/20/24 Treatments to Date: 37 Cancellations to Date: No Shows to Date: Discharge Status: Achieved Goals Improved Function Independent with HEP Discharge Summary: Pt has made excellent progress since SOC. He has demonstrated improvements in RLE strength. He has improved R quad strength from 2+/5 on initial PT evaluation to 4+/5 today. He has met his STGs and LTGs. He is independent with ambulation and stair navigation with reciprocal pattern. He is independent with HEP. He is being D/C from skilled PT at this time. He has printed, updated copy of HEP and therabands Electronically signed by: Cristal Cross, PT, DPT Please sign and return to therapist. Thank you for your referral.
== END 2024-01-20 16:14 | disposition home or self-care (01) ==
LOC: HO.PT 10:00
PROVIDERS: PCP Internal Medicine; Visit Provider Physician Assistant
DX: M54.16 Radiculopathy, lumbar region (principal)
CPT/HCPCS: 97110; 97112; 97116; 97162; 97530

== ENCOUNTER 2024-03-02 15:29 | Outpatient (AMB) | payer MEDICARE, OTHER, SELFPAY ==
--- NOTE | 2024-03-02 15:53 | A.OFFVIS_ITS ---
Intake Visit Reasons: PSA Follow up Intake Note: Patient is Present for Follow Up PSA Urology Medication: Finasteride Antibiotic Allergies: None Blood Thinners:None Recent PSA: 01/15/2024 PSA: 2.32 Allergies amlodipine Adverse Reaction (Intermediate, Verified 01/15/24 11:26) trachycardic HPI Comments Details: Mich MAHER is a very pleasant male. He is a patient of Dr Light. He is seen for the following urologic conditions. - elevated PSA - lower urinary tract symptoms Finasteride resulted in fall of PSA appropriately Taking medication Friday, Friday, Friday Improvement in urination PSA 3.2 Elevated PSA/Abnormal THEO: Nocturia 1-2x - much better Happy with stream PSA stable. He presents for further evaluation of elevated PSA. Current management is medication with 5AR. Laboratory investigations include a total PSA evaluation February 2011 3.26 Sep 2016 5.26 October 2016 5.4, 06/12 6.4 11%, 11/10 3.24, 12/11 3.7, 12/12 1.5, 07/16 2.2, 12/14 1.7, 06/17 3.8, 01/15 2.3, 07/19 3.2, 01/16 2.3 Imaging investigations include a transrectal ultrasound Yes Date 05/2017 PIN 06/06 Prostate Volume 60 Individualized Prostate Cancer Risk Calculator 5-10% high risk, Discussed use of 5AR to help differentiate prostate cancer from benign disease. He would like to try this and understands the small risk associated with a delay in diagnosis. Symptoms include 06/12 incomplete emptying, weak stream, nocturia, x 1, and are stable. Overall symptoms are mild. Therapeutic plan will be continued surveillance, 5AR. [facility] Medical History (Updated 08/26/23 @ 08:21 by Kristel Tripathi MD) Nasal congestion LUQ abdominal pain Rib pain on left side Left flank pain Carpal tunnel syndrome Distal radius fracture, right Psoriasis Erectile dysfunction Hypercholesterolemia BPH (benign prostatic hyperplasia) Hypertension Surgical History (Updated 09/17/23 @ 12:21 by Adán Light MD) H/O colonoscopy Previous back surgery History of umbilical hernia repair H/O hand surgery History of prostate biopsy Family History Mother Dementia Mental health disorder Father No problems noted. Social History Housing: House Are you a primary hemodialysis patient care specialist to a significant other at home: No Do you presently have visiting nurse or other home services: No Alcohol intake: current Alcohol intake frequency: a few times a week Alcohol t ype: beer and wine Comment: aware of trip hazard Patient Tobacco Use Status: Never used Tobacco Tobacco use type: Cigar e-Cigarette/Vaping Use: Never Used Second Hand Smoke Exposure: No Current occupational status: retired Cognitive needs: No Hearing needs: No Vision needs: No Review of Systems Const Denies chills and Denies fever(s) Card Reports no additional complaints and Denies syncope Resp Denies cough GI Denies abdominal pain and Denies heartburn Reports as per HPI and Denies change in libido Neuro Denies syncope Psych Denies change in libido Endo Denies change in libido Physical Exam Const General: cooperative, healthy appearing, comfortable and no acute distress Orientation/consciousness: patient oriented x3 HEENT Face and sinus: Yes normal facial exam Mouth: moist mucous membranes Neck Neck: Yes normal visual inspection, Yes full ROM and Yes trachea midline Chest Chest palpation & inspection: normal inspection of the chest Resp Effort & Inspection: normal respiratory effort, able to speak in complete sentences and no respiratory distress GI Inspection: Yes normal to inspection Back/Spine/Pelvis Cervical Spine: normal cervical lordosis Thoracic/Lumbar Spine: thoracic and lumbar spine normal to inspection Skin General skin exam: no rashes or lesions noted Neuro General: patient oriented x3, gait normal, tone normal and moves all extremities Extrem General: Yes normal to inspection and Yes capillary refill normal Assessment & Plan Assessment & Plan (1) BPH (benign prostatic hyperplasia): Code(s): N40.0 - Benign prostatic hyperplasia without lower urinary tract symptoms Category: Medical Qualifiers: Lower urinary tract symptom presence: symptoms present Lower urinary tract symptom detail: urinary frequency Qualified Code(s): N40.1 - Benign prostatic hyperplasia with lower urinary tract symptoms; R35.0 - Frequency of micturition (2) Elevated PSA: Code(s): R97.20 - Elevated prostate specific antigen [PSA] Category: Medical Plan Six-month follow-up Orders: Orders Prostate Specific Antigen 6 Months R97.20 - Elevated prostate specific antigen [PSA] Patient Instructions: Imaging studies, laboratory and physical exam results were discussed and reviewed in detail. No major barriers to patient understanding were identified. An opportunity to ask questions regarding the treatment plan was provided. All questions were answered. The patient expressed understanding and agreement with the above treatment plan. The patient is aware they should contact our office by phone for worsening of their current condition or the appearance of new urologic symptoms. Compliance is encouraged with any medications and followup testing that is ordered. It is a privilege to participate in the urologic care of your patient. If you have any questions or concerns regarding treatment for the above conditions, or other urologic issues, please do not hesitate to contact me. The office telephone contact is [phone]. This note is constructed using voice recognition software. While every effort has been made to ensure accuracy behavioral services tech errors may have been included. Yours sincerely, Dr Arnulfo Andrade MD, MADI [facility] Providers of Expert, Compassionate Care for the Genitourinary System Coding Level of Care Code Est Pt Level 3 (36120) Diagnoses Benign prostatic hyperplasia with urinary frequency N40.1; R35.0 Lower urinary tract symptom presence: symptoms present Lower urinary tract symptom detail: urinary frequency Elevated PSA R97.20
== END 2024-03-02 16:33 | disposition home or self-care (01) ==
PROVIDERS: PCP Internal Medicine; Visit Provider Urology
DX: N40.1 Benign prostatic hyperplasia with lower urinary tract symptoms (principal); R35.0 Frequency of micturition; R97.20 Elevated prostate specific antigen [PSA]
CPT/HCPCS: 99213

== ENCOUNTER → 2024-03-02 15:29 | Outpatient (BNVA) | payer MEDICARE, OTHER, SELFPAY | PROVIDERS: PCP Internal Medicine; Visit Provider Urology | DX: R97.20 Elevated prostate specific antigen [PSA] (principal) | CPT/HCPCS: 99212 ==

== ENCOUNTER 2024-08-25 12:46 | Outpatient (REF) | payer MEDICARE, OTHER, SELFPAY ==
[2024-08-25 16:46] LABS: Prostate Specific Antigen 2.57 ng/mL (<0.05-4.0)
== END 2024-08-25 12:47 | disposition home or self-care (01) ==
LOC: HO.HMGCLDS 12:46
PROVIDERS: PCP Internal Medicine; Visit Provider Urology
DX: R97.20 Elevated prostate specific antigen [PSA] (principal); Z12.5 Encounter for screening for malignant neoplasm of prostate
CPT/HCPCS: 36415; 84153

== ENCOUNTER 2024-09-01 09:10 | Outpatient (REF) | payer MEDICARE, OTHER, SELFPAY ==
--- NOTE | ~2024-09-01 | XR_ITS ---
EXAMINATION: XR KNEE 3 VIEWS RIGHT HISTORY: M25.561 - Pain in right knee COMPARISON: Comparison is made with the prior examination dated 07/23/2023. FINDINGS: Three views of the right knee are submitted. Osseous mineralization is normal. There is no fracture or dislocation. The joint spaces are preserved. There are vascular calcifications. There is no joint effusion. XR/XR knee RT 3V IMPRESSION: Unremarkable examination of the right knee. Electronically signed by: Evelio Darnell MD 09/02/2024 07:53 AM EDT
== END 2024-09-01 09:11 | disposition home or self-care (01) ==
LOC: HO.HOSX 09:10
PROVIDERS: Visit Provider Orthopaedic Surgery
DX: M25.561 Pain in right knee (principal); S83.241A Other tear of medial meniscus, current injury, right knee, initial encounter
CPT/HCPCS: 73562; 99212

== ENCOUNTER 2024-09-01 14:47 | Outpatient (AMB) | payer MEDICARE, OTHER, SELFPAY ==
[2024-09-01 14:51] VITALS: BMI 28.4
--- NOTE | 2024-09-01 14:51 | MHC.OFFVIS ---
Vital Signs 09/01/24 14:51 Height 5 ft 9 in Weight 192 lb BMI 28.4 Intake Visit Reasons: Right knee pain and giving way Intake Note: Mich is a 69 year old male who presents with complaints of progressively worsening right knee pain and giving way. The patient states that his symptoms have gotten worse over the last year in spite of continued non operative treatments. He states that he has fallen several times onto his right knee because of the instability. He has been to formal physical therapy which gave him minimal relief. He has failed the last 6 weeks of conservative treatment which has included Tylenol, anti-inflammatory medicines, physical therapy exercises and a home exercise program. He did undergo low back surgery in August of 2023. He reports minimal discomfort in his low back. Allergies amlodipine Adverse Reaction (Intermediate, Verified 09/01/24 14:52) trachycardic Medication List - Last Reconciled 09/01/24 by Stefan Royal MD atorvastatin 40 mg PO BEDTIME finasteride 5 mg PO DAILY 90 days fluticasone propionate 50 mcg/actuation (Flonase Allergy Relief) 2 sprays intranasal DAILY gabapentin 300 mg PO BID lisinopril 40 mg PO DAILY multivitamin 1 tab PO DAILY mupirocin 2% 1 appl topical BID PFSH Medical History Nasal congestion LUQ abdominal pain Rib pain on left side Left flank pain Carpal tunnel syndrome Distal radius fracture, right Psoriasis Erectile dysfunction Hypercholesterolemia BPH (benign prostatic hyperplasia) Hypertension Surgical History H/O colonoscopy Previous back surgery History of umbilical hernia repair H/O hand surgery History of prostate biopsy Family History Mother Dementia Mental health disorder Father No problems noted. Social History Housing: House Are you a primary childcare worker to a significant other at home: No Do you presently have visiting nurse or other home services: No Alcohol intake: current Alcohol intake frequency: a few times a week Alcohol type: beer and wine Comment: aware of trip hazard Patient Tobacco Use Status: Never used Tobacco Tobacco use type: Cigar e-Cigarette/Vaping Use: Never Used Second Hand Smoke Exposure: No Current occupational status: retired Cognitive needs: No Hearing needs: No Vision needs: No Physical Exam Vital Signs: BMI result Body Mass Index 28.4 Const Other: Well-nourished well-developed very friendly male awake alert and oriented x3 in no acute distress Extrem Other: Bilateral lower extremity examination shows good capillary refill, no skin lesions noted, normal sensation light touch Right knee examination shows a minimal effusion, minimal crepitus with range of motion, tenderness along his medial joint line, positive Cirilo's test, no instability Results Reviewed Results Reviewed: Standing full weight-bearing x-rays of the patient's right knee show mild diffuse joint space narrowing, no acute bony abnormalities Assessment & Plan Assessment & Plan (1) Tear of medial meniscus of right knee: Code(s): S83.241A - Other tear of medial meniscus, current injury, right knee, initial encounter Category: Medical Plan Mr. Newell presents with progressively worsening right knee pain and mechanical symptoms most likely due to a medial meniscus tear. Thus, I will send the patient for an MRI of his right knee for further evaluation. I will see him back once the MRI is completed to discuss the findings and treatment options. Feel free to call me at any time should questions regarding his orthopedic management arise. I spent 20 minutes in reviewing the patient's records and imaging studies, seeing the patient and documenting in the medical record. Orders: Orders MR knee RT wo con Today S83.241A - Other tear of medial meniscus, current injury, right knee, initial encounter XR knee LT 3V Today M25.562 - Pain in left knee XR knee RT 3V Today M25.561 - Pain in right knee Coding Level of Care Code Est Pt Level 3 (14954) Complex EM visit Add On G2211 Diagnoses Tear of medial meniscus of right knee S83.241A
== END 2024-09-01 15:14 | disposition home or self-care (01) ==
LOC: HO.HOS 14:47
PROVIDERS: PCP Internal Medicine; Visit Provider Orthopaedic Surgery
DX: S83.241A Other tear of medial meniscus, current injury, right knee, initial encounter (principal)
CPT/HCPCS: 99213; G2211

== ENCOUNTER → 2024-09-01 14:47 | Outpatient (BNV) | payer MEDICARE, OTHER, SELFPAY | PROVIDERS: Visit Provider Radiology Diagnostic Radiology | DX: M25.561 Pain in right knee (principal) | CPT/HCPCS: 73562 ==

== ENCOUNTER 2024-09-10 18:17 | Outpatient (REF) | payer MEDICARE, OTHER, SELFPAY | END 2024-09-10 18:18 | disposition home or self-care (01) | LOC: HO.MRI 18:17 | PROVIDERS: PCP Internal Medicine; Visit Provider Orthopaedic Surgery | DX: S83.241A Other tear of medial meniscus, current injury, right knee, initial encounter (principal) | CPT/HCPCS: 73721 ==

== ENCOUNTER → 2024-09-10 18:17 | Outpatient (BNV) | payer MEDICARE, OTHER, SELFPAY | PROVIDERS: PCP Internal Medicine; Visit Provider Radiology Diagnostic Radiology | DX: M71.21 Synovial cyst of popliteal space [Baker], right knee (principal) | CPT/HCPCS: 73721 ==

== ENCOUNTER 2024-10-21 07:35 | Outpatient (AMB) | payer MEDICARE, OTHER, SELFPAY ==
[2024-10-21 07:43] VITALS: BMI 28.4
--- NOTE | 2024-10-21 07:43 | A.OFFVIS_ITS ---
Vital Signs 10/21/24 07:43 Height 5 ft 9 in Weight 192 lb BMI 28.4 Intake Visit Reasons: OV- Rt knee MRI review Intake Note: Mich is a 69 year old male who presents with complaints of progressively worsening right knee pain and giving way. The patient states that his symptoms have gotten worse over the last year in spite of continued non operative treatments. He states that he has fallen several times onto his right knee because of the instability. He has been to formal physical therapy which gave him minimal relief. He has failed the last 6 weeks of conservative treatment which has included Tylenol, anti-inflammatory medicines, physical therapy exercises and a home exercise program. He did undergo low back surgery in August of 2023. He reports minimal discomfort in his low back. Allergies amlodipine Adverse Reaction (Intermediate, Verified 10/21/24 07:43) trachycardic Medication List - Last Reconciled 10/21/24 by Stefan Royal MD atorvastatin 40 mg PO BEDTIME finasteride 5 mg PO DAILY 90 days fluticasone propionate 50 mcg/actuation (Flonase Allergy Relief) 2 sprays intranasal DAILY gabapentin 300 mg PO BID lisinopril 40 mg PO DAILY multivitamin 1 tab PO DAILY mupirocin 2% 1 appl topical BID PFSH Medical History Nasal congestion LUQ abdominal pain Rib pain on left side Left flank pain Carpal tunnel syndrome Distal radius fracture, right Psoriasis Erectile dysfunction Hypercholesterolemia BPH (benign prostatic hyperplasia) Hypertension Surgical History H/O colonoscopy Previous back surgery History of umbilical hernia repair H/O hand surgery History of prostate biopsy Family History Mother Dementia Mental health disorder Father No problems noted. Social History Housing: House Are you a primary clinical care coordinator to a significant other at home: No Do you presently have visiting nurse or other home services: No Alcohol intake: current Alcohol intake frequency: a few times a week Alcohol type: beer and wine Comment: aware of trip hazard Patient Tobacco Use Status: Never used Tobacco Tobacco use type: Cigar e-Cigarette/Vaping Use: Never Used Second Hand Smoke Exposure: No Current occupational status: retired Cognitive needs: No Hearing needs: No Vision needs: No Physical Exam Vital Signs: BMI result Body Mass Index 28.4 Const Other: Well-nourished well-developed very friendly male awake alert and oriented x3 in no acute distress Extrem Other: Bilateral lower extremity examination shows good capillary refill, no skin lesions noted, normal sensation light touch Right knee examination shows a minimal effusion, minimal crepitus with range of motion, positive Cirilo's test, tenderness along his medial joint line, no instability Results Reviewed Results Reviewed: Standing full weight-bearing x-rays of the patient's right knee show mild diffuse joint space narrowing, no acute bony abnormalities MRI of the patient's right knee shows mild diffuse degenerative changes as well as a small tear of the medial meniscus and thickened plica Assessment & Plan Assessment & Plan (1) Tear of medial meniscus of right knee: Code(s): S83.241A - Other tear of medial meniscus, current injury, right knee, initial encounter Category: Medical Plan Mr. Newell presents with right knee pain and mechanical symptoms due to a medial meniscus tear and plica syndrome. I had a lengthy discussion with the patient regarding the treatment options. At this point he appears to be failing continued non operative treatments. He is considering undergoing right knee arthroscopic surgery later this year. He will contact my office to pick a surgery date if he chooses to do so. Surgery will most likely involve right knee arthroscopic partial medial meniscectomy as well as right knee arthroscopic plica excision. The patient does understand that he may not get 100% relief of his symptoms depending on the severity of his degenerative changes. Feel free to call me at any time should questions regarding his orthopedic management arise. I spent 20 minutes in reviewing the patient's records and imaging studies, seeing the patient and documenting in the medical record. Coding Level of Care Code Est Pt Level 3 (02149) Complex EM visit Add On G2211 Diagnoses Tear of medial meniscus of right knee S83.241A
== END 2024-10-21 07:59 | disposition home or self-care (01) ==
LOC: HO.HOS 07:36
PROVIDERS: PCP Internal Medicine; Visit Provider Orthopaedic Surgery
DX: S83.241A Other tear of medial meniscus, current injury, right knee, initial encounter (principal)
CPT/HCPCS: 99213; G2211

== ENCOUNTER → 2024-10-21 07:35 | Outpatient (BNVA) | payer MEDICARE, OTHER, SELFPAY | PROVIDERS: PCP Internal Medicine; Visit Provider Orthopaedic Surgery | DX: S83.241A Other tear of medial meniscus, current injury, right knee, initial encounter (principal); M54.50 Low back pain, unspecified; X58.XXXA Exposure to other specified factors, initial encounter; Y93.9 Activity, unspecified; Y92.9 Unspecified place or not applicable; Y99.9 Unspecified external cause status | CPT/HCPCS: 99212 ==

== ENCOUNTER 2025-03-28 12:39 | Outpatient (AMB) | payer MEDICARE, OTHER, SELFPAY ==
[2025-03-28 12:49] VITALS: BP 142/94; PULSE 83; TEMP 36.4; O2SAT 98; BMI 29.8
--- NOTE | 2025-03-28 12:49 | A.OFFPC_ITS ---
Vital Signs 03/28/25 12:49 Height 5 ft 9 in Weight 202 lb 2 oz BMI 29.8 BP 142/94 H Blood Pressure Location Lt brachial Position Sitting Pulse 83 Pulse Source Pulse Oximeter Temp 97.5 F Temp Source Temporal Artery Scan Pulse Oximetry (%) 98 Oxygen Delivery Method Room Air Intake Visit Reasons: follow up Allergies amlodipine Adverse Reaction (Intermediate, Verified 03/28/25 12:51) trachycardic Medication List - Last Reconciled 03/28/25 by Adán Light MD atorvastatin 40 mg PO BEDTIME finasteride 5 mg PO DAILY 90 days fluticasone propionate 50 mcg/actuation (Flonase Allergy Relief) 2 sprays intranasal DAILY lisinopril 40 mg PO DAILY multivitamin 1 tab PO DAILY mupirocin 2% 1 appl topical BID Tobacco use date assessed: 03/28/25 Fall risk assessment: 2 + Falls in past year Last assessed Fall Risk: 03/28/25 Dental Screening Dental Screen Date: 03/28/25 Did you have a dental visit in the last 12 months?: Yes Did you have a dental problem in the last 6 months where you did not have access to dental care?: No Was dental information given to patient?: Patient has dentist [facility] Medical History Nasal congestion LUQ abdominal pain Rib pain on left side Left flank pain Carpal tunnel syndrome Distal radius fracture, right Psoriasis Erectile dysfunction Hypercholesterolemia BPH (benign prostatic hyperplasia) Hypertension Surgical History H/O colonoscopy Previous back surgery History of umbilical hernia repair H/O hand surgery History of prostate biopsy Family History Mother Dementia Mental health disorder Father No problems noted. Social History Housing: House Are you a primary emergency care tech to a significant other at home: No Do you presently have visiting nurse or other home services: No Alcohol intake: current Alcohol intake frequency: a few times a week Alcohol type: beer and wine Comment: aware of trip hazard Patient Tobacco Use Status: Never used Tobacco Tobacco use type: Cigar e-Cigarette/Vaping Use: Never Used Second Hand Smoke Exposure: No Current occupational status: retired Cognitive needs: No Hearing needs: No Vision needs: No Questionnaire PHQ-9 Over the last 2 weeks, how often have you been bothered by any of the following problems? 1. Little interest or pleasure in doing things: not at all 2. Feeling down, depressed, or hopeless: not at all 3. Trouble falling or staying asleep, or sleeping too much: nearly every day 4. Feeling tired or having little energy: not at all 5. Poor appetite or overeating: not at all 6. Feeling bad about yourself - or that you are a failure or have let yourself or your family down: not at all 7. Trouble concentrating on things, such as reading the newspaper or watching television: not at all 8. Moving or speaking so slowly that other people could have noticed. Or the opposite - being so fidgety or restless that you have been moving around a lot more than usual: not at all 9. Thoughts that you would be better off or of hurting yourself in some way: not at all Total score: 3 Depression Screening Interpretation: Positive Depression Screening Done: Yes 89956 - PHQ-9 Billing: Yes Source: Developed by Drs. Evelio Vivas, Anuradha Webb, Kirk Euceda and colleagues, with an educational austen from [employer]. Thrive Questionnaire Date Thrive assessed: 03/21/25 I am a: Patient What is your living situation today?: I have a steady place to live Within the past 12 months, did the food you bought not last and you didn't have the money to get more?: Never true Within the past 12 months, did you worry whether your food would run out before you got money to buy more?: Never true Do you have trouble paying for medicines?: No Do you have trouble getting transportation to medical appointments?: No Do you have trouble paying your heating and electricity bill?: No Do you have trouble taking care of your child, family member or friend?: No Do you have trouble with day-to-day activities such as bathing, preparing meals, shopping, managing finances, etc.?: No Are you currently unemployed and looking for a job?: No Are you interested in more education?: No Please select the resources that you would like help with: None Currently or been in a relationship where the following occur: No concerns reported THRIVE Score: 0 AUDIT C Alcohol Use Questionnaire (AUDIT-C) 1. How often do you have a drink containing alcohol?: 2-3 times a week 2. How many drinks containing alcohol do you have on a typical day when you are drinking?: 3 or 4 3. How often do you have six or more drinks on one occasion?: Never Total Score: 4 SULMA-7 AMB Questionnaire SULMA-7 Date SULMA - 7 assessed: 03/28/25 Feeling nervous, anxious, or on edge: 0 = Not at all Not being able to stop or control worryin = Not at all Worrying too much about different things: 0 = Not at all Trouble relaxin = Not at all Being so restless that it is hard to sit still: 0 = Not at all Becoming easily annoyed or irritable: 0 = Not at all Feeling afraid as if something awful might happen: 0 = Not at all Total SULMA-7 score (0-4 normal; 5-9 mild; 10-14 moderate; 15-21 severe): 0 Source: Developed by Drs. Evelio Vivas, Anuradha Webb, Kirk Euceda and colleagues, with an educational austen from [employer]. SULMA-7 Assessment Billing SULMA-7 Assessment Tool: SULMA-7 Assessment 08413 Physical exam (Primary Care) Vital Signs: Last Vital Signs Temp 97.5 F 03/28/25 12:49 Pulse 83 03/28/25 12:49 BP 142/94 H 03/28/25 12:49 Pulse Ox 98 03/28/25 12:49 Oxygen Delivery Method Room Air 03/28/25 12:49 BMI result Body Mass Index 29.8 Tobacco/Smoking Status: Tobacco use Status Tobacco use date assessed 03/28/25 03/28/25 12:52 Patient Tobacco Use Status Never used Tobacco 03/28/25 12:52 Tobacco use type Cigar 03/28/25 12:52 e-Cigarette/Vaping Use Never Used 03/28/25 12:52 PHQ-9: PHQ-9 Score PHQ-9: Total score 3 03/28/25 13:07 Depression Screening Interpretation: Positive Thrive Assessment: Date of Thrive Assessment Date Thrive assessed 03/21/25 03/28/25 12:52 Currently or been in a relationship where the following occur: No concerns reported Const General: alert; No acute distress Eyes Conjunctivae: conjunctivae normal Resp Auscultation: clear to auscultation bilaterally Cardio Rate: regular rate Rhythm: regular rhythm GI Inspection: Yes normal to inspection Extrem General: Yes normal to inspection and No edema Coding Level of Care Code Est Pt Level 4 (70483) Complex EM visit Add On G2211 Diagnoses Essential hypertension I10 Hypertension type: essential hypertension Hypercholesterolemia E78.00 Impaired fasting blood sugar R73.01 Overweight (BMI 25.0-29.9) E66.3 Benign prostatic hyperplasia with urinary frequency N40.1; R35.0 Lower urinary tract symptom detail: urinary frequency Lower urinary tract symptom presence: symptoms present Hypersomnia G47.10 Additional Codes SULMA-7 Assessment Billing - SULMA-7 Assessment Tool: SULMA-7 Assessment 04093 ([id number]) PHQ-9 - 03692 - PHQ-9 Billing: Yes ([id number]) Assessment & Plan Assessment & Plan (1) Hypertension: Code(s): I10 - Essential (primary) hypertension Category: Medical Qualifiers: Hypertension type: essential hypertension Qualified Code(s): I10 - Essential (primary) hypertension Plan: Continue with blood pressure medication. Decrease salt intake and exercise on lisinopril 40 mg once a day (2) Hypercholesterolemia: Code(s): E78.00 - Pure hypercholesterolemia, unspecified Category: Medical Plan: Avoid fried foods, chicken skin, eggs, butter margarine, pastries and meat. Be it pork or beef they have a lot of cholesterol LDL goal of less than 130 and tr iglyceride of less than 150 on atorvastatin 40 mg once a day (3) Impaired fasting blood sugar: Code(s): R73.01 - Impaired fasting glucose Category: Medical Plan: Decrease the amount of carbohydrate intake, pasta, bread, rice and potatoes are all sugar and that is aside from all the sweet stuff, remember that fruits are good but they are Sweet also. (4) Overweight (BMI 25.0-29.9): Code(s): E66.3 - Overweight Category: Medical Plan: Diet and exercise (5) BPH (benign prostatic hyperplasia): Code(s): N40.0 - Benign prostatic hyperplasia without lower urinary tract symptoms Category: Medical Qualifiers: Lower urinary tract symptom detail: urinary frequency Lower urinary tract symptom presence: symptoms present Qualified Code(s): N40.1 - Benign prostatic hyperplasia with lower urinary tract symptoms; R35.0 - Frequency of micturition Plan: Patient follows up with urology and continue to follow-up with PSA on finasteride (6) Hypersomnia: Code(s): G47.10 - Hypersomnia, unspecified Category: Medical Plan History of Present Illness The patient is a 70-year-old overweight male presenting for a follow-up visit. He has experienced a 10-pound weight gain since September. His past medical history is significant for hypertension, hypercholesterolemia, elevated PSA, impaired glucose tolerance, and a tubular adenoma of the colon found on his last colonoscopy in May 2022. Regarding his musculoskeletal history, the patient has a history of lumbar radiculopathy and underwent a lumbar microdiscectomy in August 2023. He is also being followed by orthopedics for right knee pain due to a medial meniscal tear, with his last visit in September. Surgical options discussed include a right knee arthroscopic partial medial meniscectomy and plica excision, though the patient is deferring this until after the summer. For urological health, the patient has been under surveillance with urology for an elevated PSA since February of the previous year and takes finasteride. For management of his chronic conditions, he is on lisinopril 40 mg for hypertension and atorvastatin 30 mg for hypercholesterolemia, with an LDL goal of less than 130 and triglycerides less than 150. His impaired glucose tolerance is managed with diet and exercise. His blood pressure has recently been e levated, which he attributes possibly to pain and ibuprofen use. The patient reports a new issue with sleep, characterized by waking up almost every night, about 2 to 3 hours after falling asleep, and remaining awake for an hour and a half. He reports snoring but denies daytime sleepiness or fatigue. Health Maintenance - Prostate cancer screening: Follows with urology for elevated PSA. - Colon cancer screening: Last colonoscopy was in May 2022, which showed a tubular adenoma. - Lifestyle: Advised on diet and exercise for impaired glucose tolerance. - Labs: Fasting blood work is needed to monitor cholesterol and blood pressure medication effects. - Hydration: Advised to maintain good hydration. Social History - Weight: Patient is overweight and has gained 10 pounds since September. - Hydration: Patient reports he does not stay well-hydrated. Review of Systems - Constitutional: Denies daytime fatigue or sleepiness. - Respiratory: Reports snoring. - Musculoskeletal: Reports right knee pain. - Neurological: Reports sleep maintenance insomnia, characterized by waking 2-3 hours after sleep onset and remaining awake for approximately 1.5 hours before returning to sleep. Physical Exam - Vitals: Blood pressure is elevated. Results - Procedures: Colonoscopy in May 2022 revealed a tubular adenoma. Plan Patient was informed and verbally consented to the use of an ambient scribe for clinic note documentation during this visit. 1. Essential Hypertension The patient's blood pressure is elevated despite being on the maximum dose of lisinopril 40 mg. A combination medication with hydrochlorothiazide will be prescribed, as it is effective with lisinopril. The patient was advised to maintain adequate hydration. Blood pressure will be re-evaluated at a follow-up visit in approximately 3 months. 2. Hypercholesterolemia The patient will continue his current dose of atorvastatin 30 mg. A fasting blood work order will be provided to monitor lipids. 3. Right Knee Medial Meniscal Tear The patient is considering a right knee arthroscopic partial medial meniscectomy and plica excision. He has decided to postpone the procedure until after the summer. He will continue to follow up with his workers compensation specialist. 4. Elevated Prostate-Specific Antigen (Psa) The patient will continue taking finasteride and remain under surveillance. He is advised to continue follow-up with urology for PSA monitoring. 5. Sleep Maintenance Insomnia The patient reports waking in the middle of the night but denies daytime somnolence and is hesitant to start medication. Given his report of snoring, a home sleep study will be ordered to rule out sleep apnea. 6. Impaired Glucose Tolerance The patient is advised to continue with diet and exercise. Monitoring will be included in the ordered fasting blood work. Discussion Notes We discussed the patient's elevated blood pressure, noting that he is already on the maximum dose of lisinopril. I explained that the next step is to add a diuretic, hydrochlorothiazide, which works effectively with his current medication, and I will prescribe this. The importance of staying well-hydrated, especially with the new medication, was emphasized. We addressed his sleep disturbances. Although he is hesitant about medication and denies daytime sleepiness, given his snoring, I recommended a home sleep study to investigate for sleep apnea, and he was agreeable. An order for fasting blood work was placed to monitor his chronic conditions. We will follow up in approximately three months to review the results and reassess his blood pressure. Patient Instructions - I am prescribing a new blood pressure medication, hydrochlorothiazide, to be taken with your lisinopril. - Please make sure to drink plenty of water throughout the day. - Please complete the fasting blood work that was ordered for you. - I have ordered a home sleep study to check for breathing problems during sleep; you will be contacted to set this up. - Continue to follow up with your urology doctor for your prostate condition. - Continue your diet and exercise plan. - Please schedule a follow-up appointment with me in about three months. Orders: Orders Hemoglobin A1c Today E78.00 - Pure hypercholesterolemia, unspecified UA CC w/rflx Micro + Cult Today E78.00 - Pure hypercholesterolemia, unspecified, R30.0 - Dysuria Complete Blood Count Auto Diff Today E78.00 - Pure hypercholesterolemia, unspecified Comprehensive Met. Panel Today E78.00 - Pure hypercholesterolemia, unspecified Free T4 (Free Thyroxine) Today E78.00 - Pure hypercholesterolemia, unspecified Thyroid Stimulating Hormone Today E78.00 - Pure hypercholesterolemia, unspecified Lipid Panel Today E78.00 - Pure hypercholesterolemia, unspecified Vitamin B12 and Folate Today E78.00 - Pure hypercholesterolemia, unspecified Prostate Specific Antigen Scr Today E78.00 - Pure hypercholesterolemia, unspecified RT home sleep study Today G47.10 - Hypersomnia, unspecified Medications: New chlorthalidone 25 mg PO DAILY 30 tabs 3RF I10 - Essential (primary) hypertension
--- OUTSIDE RECORDS SUMMARY | 2025-03-28 16:01 | XMS_ITS | Patient Health Record ---
Author Organization [facility] Pam leif [place] Address [address] [place] [address] Care Team Providers Care Business Systems Lead Name Role Phone Adán Light Primary Care Provider Donny Man Unavailable [phone] Reason For Referral No Information Medications Medication SIG (Take, Route, Fr equency, Duration) Notes Start Date End Date Status Lisinopril 20 MG 1 tablet Orally Once a day; Duration: 30 day(s) Active Simvastatin 5 MG 1 tablet in the even ing Orally Once a day; Duration: 30 day(s) Activ e Problems Problem Type SNOMED Code ICD Code Onset Dates Problem Status W/U Status Risk Notes Problem Bursitis (48974556) Bursitis (727.3) Active confirmed Problem Hammer toe (026870690) Hammer toe (735.4) Active confirmed Problem Metatarsalgia (69978074) Metatarsalgia (726.70) Active confirmed Plan Of Treatment Pending Test Test Name Order Date X ray : Foot, right 3V 01/10/2012 32935, [id number], JOINT/BURSA 0 02/21/2012 Insurance Providers Payer Name Payer Address Payer Phone Subscriber Number Group Number Insured Name Patient Relationship to Insured Coverage Start Date Coverage End Date [facility] [address] [place] [phone] [id number] Reece [place] Self - patient is the insured Medical (General) History Medical History History ICD Code high blood pressure psoriasis chicken pox cholesterol Surgical History Surgery Date(Month/Year) hernia 2010
== END 2025-03-28 14:03 | disposition home or self-care (01) ==
LOC: HO.HMCH 12:39
PROVIDERS: PCP Internal Medicine; Visit Provider Internal Medicine
DX: I10 Essential (primary) hypertension (principal); E78.00 Pure hypercholesterolemia, unspecified; R73.01 Impaired fasting glucose; E66.3 Overweight; N40.1 Benign prostatic hyperplasia with lower urinary tract symptoms; R35.0 Frequency of micturition; G47.10 Hypersomnia, unspecified

== ENCOUNTER → 2025-03-28 12:39 | Outpatient (BNVA) | payer MEDICARE, OTHER, SELFPAY | PROVIDERS: PCP Internal Medicine; Visit Provider Internal Medicine | DX: I10 Essential (primary) hypertension (principal); E78.00 Pure hypercholesterolemia, unspecified; R73.01 Impaired fasting glucose; E66.3 Overweight; N40.1 Benign prostatic hyperplasia with lower urinary tract symptoms; R35.0 Frequency of micturition; G47.10 Hypersomnia, unspecified | CPT/HCPCS: 96127; 99212 ==

== ENCOUNTER → 2025-05-12 09:23 | Outpatient (REF) | payer MEDICARE, OTHER, SELFPAY ==
--- OUTSIDE RECORDS SUMMARY | 2025-05-12 10:45 | XMS_ITS | Patient Health Record ---
Author Organization [facility] [place] Address [address] [place] [address] Care Team Providers Care Manager Client Support Name Role Phone Adán Light Primary Care Provider Donny Man Unavailable [phone] Reason For Referral No Information Medications Medication [...] Status W/U Status Risk Notes Problem Bursitis (35850830) Bursitis (727.3) Active confirmed Problem Hammer toe (440422015) Hammer toe (735.4) Active confirmed Problem Metatarsalgia (60455112) Metatarsalgia (726.70) Active confirmed Plan Of Treatment Pending Test Test Name Order Date X ray : Foot, right 3V 01/10/2012 55925, [id number], JOINT/BURSA 0 02/21/2012 Insurance Providers Payer Name Payer Address Payer Phone Subscriber Number Group Number Insured Name Patient Relationship to Insured Coverage Start Date Coverage End Date [facility] [address] [place] [phone] [id number] Reece [place] Self - patient is the insured Medical (General) History Medical History History ICD Code high blood pressure psoriasis chicken pox cholesterol Surgical History Surgery Date(Month/Year) hernia 2010
== END ==
LOC: HO.SL 09:23
PROVIDERS: PCP Internal Medicine; Visit Provider Internal Medicine
DX: G47.10 Hypersomnia, unspecified (principal)
CPT/HCPCS: 95806

== ENCOUNTER → 2025-05-16 09:37 | Outpatient (BNV) | payer MEDICARE, OTHER, SELFPAY | PROVIDERS: PCP Internal Medicine; Visit Provider Psychiatry & Neurology Neurology | DX: G47.33 Obstructive sleep apnea (adult) (pediatric) (principal) | CPT/HCPCS: 95806 ==